=== PATIENT | male | born 1935 | race Caucasian/White ===

== ENCOUNTER 2018-01-04 14:38 | Inpatient (IN) | payer OTHER ==
[~2018-01-04] VITALS: Ht 172.7 cm; Wt 64.0 kg
[~2018-01-04 14:38] MED LIST: AMLODIPINE BESYL5 M1 PO; FUROSEMIDE20 M1 PO; OMEPRAZOLE20 M2 PO; PRAVACHOL40 M1 PO; TOPROL XL25 M1 PO
--- NOTE | 2018-01-04 15:09 | ED MVC/FALL/TRAUMA COMPLAINT ---
History of Present Illness General Chief Complaint: Shoulder Injury Stated Complaint: L SHOULDER PAIN Source: patient Exam Limitations: no limitations Allergies Coded Allergies: No Known Allergies (06/30/17) Reconcile Medications Amlodipine Besylate 5 MG TABLET 1 TAB PO DAILY HTN (Reported) Furosemide 20 MG TABLET 1 TAB PO DAILY HTN (Reported) Metoprolol Succ XL (Toprol XL) 25 MG TAB 1 TAB PO DAILY HTN (Reported) Omeprazole 20 MG CAPSULE.DR 1 CAP PO DAILY GERD (Reported) Pravastatin Sodium (Pravachol) 40 MG TABLET 1 TAB PO DAILY CHOLESTEROL ( Reported) Triage Note: LOST FOOTING AND FELL DOWN 12 STEPS INJURING LEFT SHOULDER. PT HAS LITTLE RECOLLECT OF INCIDENT AND IS UNSURE OF LOC. PT DENIES BLOOD THINNERS. PT GIVEN MOTRIN IN TRIAGE Triage Nurses Notes Reviewed? yes Onset: Abrupt Duration: constant Timing: single episode today Severity: moderate Severity Numbers: 7 Injuries/Fall Location: neck, upper extremity Method of Injury: fall Loss of Consciousness: unsure HPI: Patient is a 82-year-old male with past medical history of hypertension and hyperlipidemia who lives in a private residence by himself WHO states that today he was in his normal state of health patient was ambulating up steps from his garage to his residence carrying groceries one step at a time where he states he was at the top of his stairs approximately 12 OF THEM, and then next thing patient remembers is being on the floor in his garage. Patient states that he had woken up to left shoulder pain and took about 5 minutes for patient to get up on his own where he then ambulated up the stairs and called his daughter with a presents to emergency room. Patient denies any preceding absolute lightheaded or dizziness sensation denies any headache complains of mild general his neck pain and left wrist pain along with the severe left shoulder pain and patient is unable to move the left arm. Patient denies any lower extremity pain abdominal pain and low back pain (Ortiz SINGLETON,Fer) Vital Signs & Intake/Output Vital Signs & Intake/Output Vital Signs Date Time Temp Pulse Resp B/P B/P Pulse O2 O2 Flow FiO2 Mean Ox Delivery Rate 01/04 1659 77 20 182/79 98 Room Air 01/04 1620 97 Room Air 01/04 1458 97.1 68 20 159/66 97 Room Air (Massiel NIELSEN,Fred Gutierrez) Past History Travel History Traveled to [place] past 21 day No Medical History Any Pertinent Medical History? see below for history Cardiovascular: hypertension, hyperlipidemia Pneumonia Vaccine: 10/12/04 Surgical History Surgical History: non-contributory Psychosocial History What is your primary language Sami Tobacco Use: Quit >30 days ago ETOH Use: occasional use Illicit Drug Use: denies illicit drug use Family History Hx Contributory? No (Fer Burnett) Review of Systems Review of Systems Constitutional: Reports: no symptoms. Eyes: Reports: no symptoms. Ears, Nose, Throat, Mouth: Reports: no symptoms. Respiratory: Reports: no symptoms. Cardiovascular: Reports: see HPI. Gastrointestinal/Abdominal: Reports: no symptoms. Genitourinary: Reports: no symptoms. Musculoskeletal: Reports: see HPI. Skin: Reports: no symptoms. Neurological/Psychological: Reports: no symptoms. All Other Systems: Reviewed and Negative (Ortiz SINGLETON,Fer) Physical Exam Physical Exam General Appearance: no apparent distress, alert, comfortable Head: atraumatic Eyes: Bilateral: normal appearance, PERRL, EOMI. Ears, Nose, Throat, Mouth: hearing grossly normal Neck: paraspinous muscle tender, spinous processes tender Respiratory: no respiratory distress Cardiovascular: regular rate/rhythm Peripheral Pulses: 2+ radial (R) Gastrointestinal: normal bowel sounds, soft, non-tender Back: no vertebral tenderness Skin: intact Comments: Left shoulder generalized point tenderness noted decreased active range of motion noted Left elbow normal instruction nontender full active range of motion Left wrist and hand mild generalized point tenderness noted Left radial pulse intact +2 Right upper extremity and bilateral lower extremity nontender full active range of motion Core Measures ACS in differential dx? Yes CVA/TIA Diagnosis No Sepsis Present: No Sepsis Focused Exam Completed? No (Fer Burnett) Progress Differential Diagnosis: aoritic dissection, abd injury, C/T/L spine injury, ext injury, ICH, pelvis injury, pnemothorax, spinal cord injury Diagnostic Imaging: Viewed by Me: CT Scan. Radiology Impression: acute abnormality Initial ED EKG: normal QRS complex, normal sinus rhythm, 76 BPM,NSR Comments: PATIENT: SHERRY FUENTES PRESENT AGE: 82 PATIENT ACCOUNT NO: [id number] : 37 LOCATION: [facility] ORDERING PHYSICIAN: Fer SINGLETON SERVICE DATE: 01/04/18 EXAM TYPE: US - [id number] DOPPLER EXAMINATION: US DUPLEX CAROTID AND VERTEBRAL CLINICAL INFORMATION: Syncope. COMPARISON: None TECHNIQUE: Real-time ultrasound and Doppler techniques (integrating B-mode 2D vascular images, Doppler spectral analysis and color flow Doppler imaging) were utilized to interrogate the extracranial carotid and vertebral arteries bilaterally. The degree of stenosis determined by criteria similar to NASCET. FINDINGS: Peak systolic velocity within the right common carotid artery is 107 cm/s. Peak systolic velocity within the right proximal internal carotid artery is 181 cm/s. End-diastolic velocity of the proximal right internal carotid artery is 25 cm/s. There is atherosclerotic disease about the carotid bifurcation. Antegrade flow within the right vertebral artery. Peak systolic velocity within the left common carotid artery is 160 cm/s. Peak systolic velocity within the left proximal internal carotid artery is 51.6 cm/s. End-diastolic velocity of the proximal left internal carotid artery is 7 cm/s. There is atherosclerotic disease about the carotid bifurcation. Antegrade flow within the left vertebral artery. IMPRESSION: 1. Approximately 50-79% stenosis at the proximal right internal carotid artery. 2. Approximately 0-49% stenosis at the proximal left internal carotid artery. DICTATED BY: Raul Newsome MD DATE/TIME DICTATED:01/04/181699 PATIENT: SHERRY FUENTES PRESENT AGE: 82 PATIENT ACCOUNT NO: [id number] : 37 LOCATION: [facility] ORDERING PHYSICIAN: Fer SINGLETON SERVICE DATE: 01/04/18 EXAM TYPE: CAT - CT ABD & PELVIS W/O IV CONTRAS; CT CHEST WO IV CONTRAST EXAMINATION: CT CHEST WITHOUT INTRAVENOUS CONTRAST CT ABDOMEN AND PELVIS WITHOUT INTRAVENOUS CONTRAST CLINICAL INFORMATION: Fall. Syncope, 12 steps. COMPARISON: None DLP: 389 mGy-cm TECHNIQUE: Axial images of the chest, abdomen, and pelvis were obtained without intravenous contrast. Reformatted images were reviewed. FINDINGS: Thorax: No pneumothorax, evidence of hemothorax, or consolidation suspicious for contusion. Mild dependent consolidation in the right lower lobe. There are a few scattered subcentimeter pulmonary nodules. On axial image 303/1040, there is a 0.6 cm left upper lobe nodule with an eccentric coarse internal calcification. Other smaller micronodules are demonstrated. The trachea and central airways are patent. No mediastinal adenopathy. Multifocal coronary artery calcification. Abdomen/Pelvis: No pneumoperitoneum or evidence of hemoperitoneum. Bilateral mild perinephric stranding is nonspecific and of doubtful clinical significance. There is layering hyperdense sludge versus tiny gallstones within the gallbladder lumen. No evidence of hepatic or splenic laceration. No adrenal or pancreatic abnormality. Exophytic small cyst off the upper pole the left kidney. Additional 1 cm lesion off the lower pole the left kidney measuring 22 Hounsfield units which is nonspecific. Bowel gas pattern is nonobstructive. No evidence of acute bowel injury or inflammation. There are a few scattered colonic diverticula. The appendix is absent. Scattered atherosclerotic calcification. No adenopathy. No free pelvic fluid. Coarse prostate calcifications. Bladder is unremarkable. Musculoskeletal: No acute osseous abnormalities. Chronic L5 pars defects. Multilevel degenerative changes of the spine. Partially visualized cervical fusion hardware. Decreased bone mineral density. Subacute to chronic right anterolateral 8th and 9th rib fractures. Hypertrophic changes at the sacroiliac joints. IMPRESSION: 1. No evidence of traumatic intrathoracic, intra-abdominal, or intrapelvic pathology. 2. Diffuse atherosclerotic disease including coronary artery calcification. 3. Scattered subcentimeter pulmonary nodules measuring up to 0.6 cm in the left upper lobe. According to the UPDATED 2017 Fleischner Society recommendations, the advised followup imaging for multiple solid nodules, the largest measuring 6 mm or greater, is: LOW RISK PATIENT: CT at 3-6 months, then consider CT at 18-24 months. HIGH RISK PATIENT: CT at 3-6 months, then at 18-24 months. 4. Symmetric mild perinephric stranding bilaterally is of doubtful clinical significance. 5. A nonspecific 1 cm hypodense lesion measuring just greater than simple fluid density along the lower pole of the left kidney. This could represent a cyst. Consider correlation with sonography to ensure cystic nature. 6. Other nonacute findings as described above. DICTATED BY: Raul Newsome MD DATE/TIME DICTATED:01/04/181616 HAZMAT CDL DRIVER:VIJAY PATIENT: SHERRY FUENTES PRESENT AGE: 82 PATIENT ACCOUNT NO: [id number] : 37 LOCATION: [facility] ORDERING PHYSICIAN: Fer SINGLETON SERVICE DATE: 01/04/18-1228 EXAM TYPE: RAD - XRY-HUMERUS, LEFT EXAMINATION: XR HUMERUS, LEFT CLINICAL INFORMATION: Left arm pain after fall. COMPARISON: Left shoulder radiography 01/04/2018. TECHNIQUE: AP and lateral views of the left humerus. FINDINGS: Decreased bone mineral density. No fracture or dislocation. The shoulder and elbow joints appear congruent. IMPRESSION: No acute osseous abnormalities. DICTATED BY: Raul Newsome MD DATE/TIME DICTATED:01/04/181632 PATIENT: SHERRY FUENTES PRESENT AGE: 82 PATIENT ACCOUNT NO: [id number] : 37 LOCATION: [facility] ORDERING PHYSICIAN: Fer SINGLETON SERVICE DATE: 01/04/18 EXAM TYPE: CAT - CT CERV SPINE WO IV CONTRAST; CT HEAD WO IV CONTRAST EXAMINATION: CT HEAD WITHOUT CONTRAST CT CERVICAL SPINE WITHOUT CONTRAST CLINICAL INFORMATION: Fall. Syncope. COMPARISON: Cervical spine 03/25/2007, 08/30/2015. TECHNIQUE: Imaging was performed from the skull base to vertex without intravenous administration of contrast. In addition, helical noncontrast CT imaging was acquired through the cervical spine and source images were reviewed along with axial reconstructions and sagittal and coronal MPRs. DLP: 866.69 mGy-cm. FINDINGS: HEAD: There is a small subarachnoid hemorrhage at the vertex of the right frontal lobe, axial image 43 (2). There is no subdural collection. There is no mass effect. There is atrophy with prominence of the ventricles and sulci with hypodensity of the periventricular white matter and chronic small vessel ischemic disease. There is vascular calcification of the internal carotid arteries bilaterally. There is no skull fracture. There is opacification of the right frontal sinus with occlusion of the right frontal sinus ostia and mucosal thickening extending into the ethmoid sinus. There is a small area of mucosal thickening in the left ethmoid posteriorly. The sphenoid sinuses are normally aerated. The middle ear cavities and mastoid air cells are normally aerated. CERVICAL SPINE: There is a slightly displaced transverse fracture through the posterior spinous process of C7. The alignment of the vertebrae is normal. The vertebrae have normal height. Patient has fusion with anterior plate and screw and disc spacers at C5-C7. There has been resection of the posterior spinous process of C3-C6. There is large anterior nonbridging osteophytes at C3-C4 and C4-C5 with disc height narrowing. There is also large nonbridging osteophytes with disc height narrowing at C6-C7. There is multilevel facet joint arthrosis bilateral. No pre or paravertebral soft tissue abnormality is identified. Limited assessment of the lung apices is unremarkable. IMPRESSION: 1. Subarachnoid hemorrhage in the right frontal lobe vertex. 2. There is an acute oblique fracture through the posterior C7 spinous process which is slightly displaced. 3. Multilevel degenerative spondylosis of cervical spine. Status post fusion of C5 C7. Status post resection of posterior spinous process of C3-C6. This critical result was discussed with Dr. Alcantar on 01/04/2018, 4:25 p.m. and it was ascertained that the content and urgency of the report was understood at the time of direct communication. DICTATED BY: John Ruiz MD DATE/TIME DICTATED:01/04/181614 HAZMAT CDL DRIVER:VIJAY DATE/TIME TRANSCRIBED:01/04/181614 (Fer Burnett) Plan of Care: Orders Procedure Date/time Status CBC WITHOUT DIFFERENTIAL 01/04 2100 Active Pathway - chart 01/04 1837 Active House Staff 01/04 1837 Active Patient Data 01/04 1824 Active Durable Medical Equipment 01/04 1759 Active CREATINE PHOSPHOKINASE 01/04 1538 Complete Telemetry/Sludge Filtration Attendant 01/04 1523 Active TROPONIN LEVEL 01/04 1523 Complete MAGNESIUM 01/04 1523 Complete COMPREHENSIVE METABOLIC PANEL 01/04 1523 Complete CBC WITHOUT DIFFERENTIAL 01/04 1523 Complete EKG 01/04 1523 Active VTE Mechanical Prophylaxis 01/04 UNK Active Vital Signs 01/04 UNK Active Intake & Output 01/04 UNK Active Current Medications Sig/Keven Start time Last Medication Dose Stop Time Status Admin Acetaminophen 1,000 MG ONCE ONE 01/04 1900 AC 01/04 (Ofirmev) 01/04 191 1904 N/A 1 UNIT (No Carrier) Magnesium Sulfate 1 GM Q2H 01/04 190 UNVr 01/04 (Mag Sulfate in D5) 01/04 2259 1856 Dextrose/Water 100 ML (D5W) Laboratory Tests 01/04/18 1538: Anion Gap 15, Estimated GFR 29 L, BUN/Creatinine Ratio 7.7, Glucose 98, Calcium 9.9, Magnesium 1.1 L, Total Bilirubin 0.8, AST 29, ALT 29, Alkaline Phosphatase 96, Creatine Kinase 183 H, Troponin I < 0.01, Total Protein 7.5, Albumin 4.1, Globulin 3.4, Albumin/Globulin Ratio 1.2, CBC w Diff NO MAN DIFF REQ, RBC 3.53 L, MCV 96.8 H, MCH 33.0 H, MCHC 34.1, RDW 13.4, MPV 6.5 L, Gran % 81.3 H, Lymphocytes % 9.5 L, Monocytes % 8.7, Eosinophils % 0.2, Basophils % 0.3, Absolute Granulocytes 6.5, Absolute Lymphocytes 0.8 L, Absolute Monocytes 0.7 H, Absolute Eosinophils 0, Absolute Basophils 0 01/04/18 1531: Creatine Kinase Cancelled Patient on initial examination was complaining primarily of left lateral shoulder and upper arm pain and complaining of mild generalized neck pain, patient was neurovascularly intact of the extremities and cranial nerves were intact however there was clinical findings of a C7 spinous process fracture in which patient was immediately given a hard collar and there was consideration of a subarachnoid hemorrhage in which Dr. Liu was aware of critical findings which she stated that there was no emergent intervention warranted for patient's findings of the spine in the head, she advised patient to be placed in a soft collar which I replaced the hard collar to a soft collar patient also has findings of hypomagnesemia and hyponatremia and acute on chronic renal failure and syncope which patient will be admitted to the ICU, I PLACED A WRIST SPLINT DUE TO CONCERNS OF XRAY FINDINGS FOR FRACTURES PRE AND POST NEUROVASCULAR WAS INTACT. Discussed disposition plan with daughter and patient who agree and have no questions (Fer Burnett) (Massiel NIELSEN,Fred Gutierrez) Departure Departure Disposition: STILL A PATIENT Condition: Guarded Clinical Impression Primary Impression: Syncope Secondary Impressions: JASPREET (acute kidney injury), Carotid stenosis, Fall, Hypomagnesemia, Hyponatremia, Left wrist fracture, Spinous process fracture, Subarachnoid bleed Referrals: Bernice Campos (PCP/Family) Departure Forms: Customer Survey General Discharge Information Admission Note Spoke With: Danis Smith MD Documentation of Exam: Documentation of any treatments & extenuating circumstances including Concerns Regarding Discharge (functional status, medication knowledge or non-compliance, living conditions, etc.) that warrant an admission rather than observation: [PT REQUIRES ICU FOR SYNCOPE, SAH, electrolyte abnormalities, carotid stenosis C7 fracture patient requires repeat labs, frequent vital sign checks repeat CT imaging neurosurgery consultation cardiology consultation orthopedic consultation] (Fer Burnett) PA/OFFICE CLIN ASST Co-Sign Statement Statement: ED Attending supervision documentation- [X] I saw and evaluated the patient. I have also reviewed all the pertinent lab results and diagnostic results. I agree with the findings and the plan of care as documented in the PA's/OFFICE CLIN ASST's documentation. Patient presents for evaluation of injury sustained status post fall down approximately 12 stairs prior to arrival. Physical examination reveals severe pain with range of motion of left shoulder. Neurologic examination reveals no cranial nerve deficits. 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 [] I have reviewed the ED Record and agree with the PA's/OFFICE CLIN ASST's documentation. [] Additions or exceptions (if any) to the PAs/OFFICE CLIN ASST's note and plan are summarized below: [] (Massiel NIELSEN,Fred Gutierrez) Critical Care Note Critical Care Note Critical Care Time: 75-104 min (Ortiz SINGLETON,Fer)
--- NOTE | 2018-01-04 15:47 | RADIOLOGY REPORT ---
EXAMINATION: XR SHOULDER, LEFT CLINICAL INFORMATION: Left shoulder pain. COMPARISON: None TECHNIQUE: Three views of the left shoulder. FINDINGS: The bones and soft tissues are normal. No fracture. Glenohumeral and acromioclavicular alignment is anatomic with normal joint space. No abnormal soft tissue calcifications. IMPRESSION: Normal left shoulder.
[2018-01-04 15:56] LABS: ABSOLUTE BASOPHIL COUNT 0 /CUMM (0.0-0.2); ABSOLUTE EOSINOPHIL COUNT 0 /CUMM (0.0-0.7); ABSOLUTE GRANULOCYTE CT 6.5 /CUMM (1.4-6.5); ABSOLUTE LYMPH COUNT 0.8 /CUMM (1.2-3.4); ABSOLUTE MONOCYTE COUNT 0.7 /CUMM (0.10-0.60); BASOPHIL % 0.3 % (0.0-2.0); EOSINOPHIL % 0.2 % (0-5); GRANULOCYTE % 81.3 % (42.2-75.2); HEMATOCRIT 34.2 % (42-52); MEAN CORPUSCULAR HGB CONC 34.1 G/DL (33.0-37.0); MEAN CORPUSCULAR VOLUME 96.8 FL (80.0-94.0); MEAN PLATELET VOLUME 6.5 FL (7.4-10.4); PLATELET COUNT 292 /CUMM (130-400); RBC DISTRIBUTION WIDTH 13.4 % (11.5-14.5); RED BLOOD CELL CT 3.53 /CUMM (4.70-6.10)
--- NOTE | 2018-01-04 16:03 | RADIOLOGY REPORT ---
EXAMINATION: XR WRIST, LEFT CLINICAL INFORMATION: Left wrist pain. COMPARISON: None TECHNIQUE: Three views of the left wrist. FINDINGS: There is osteopenia. At the mid waist of the navicular bone there is a subtle transverse sclerotic line. At the mid waist of navicular bone at the radial side of the bone there is a small contour groove of the cortex though its difficult to exclude a small cortical step-off. A subtle fracture of the navicular bone at the mid waist is therefore not excluded. There is joint narrowing of the first metacarpal carpal joint with bone spurring at the joint margin. IMPRESSION: A subtle mid waist fracture of navicular bone cannot be excluded. Follow-up with CT or MRI would be helpful. This critical result was discussed with Dr. Fer Alcantar on 01/04/2018, 3:58 PM and it was ascertained that the content and urgency of the report was understood at the time of direct communication.
--- NOTE | 2018-01-04 16:37 | RADIOLOGY REPORT ---
EXAMINATION: XR HUMERUS, LEFT CLINICAL INFORMATION: Left arm pain after fall. COMPARISON: Left shoulder radiography 01/04/2018. TECHNIQUE: AP and lateral views of the left humerus. FINDINGS: Decreased bone mineral density. No fracture or dislocation. The shoulder and elbow joints appear congruent. IMPRESSION: No acute osseous abnormalities.
--- NOTE | 2018-01-04 16:38 | CT SCAN REPORT ---
EXAMINATION: CT CHEST WITHOUT INTRAVENOUS CONTRAST CT ABDOMEN AND PELVIS WITHOUT INTRAVENOUS CONTRAST CLINICAL INFORMATION: Fall. Syncope, 12 steps. COMPARISON: None DLP: 389 mGy-cm TECHNIQUE: Axial images of the chest, abdomen, and pelvis were obtained without intravenous contrast. Reformatted images were reviewed. FINDINGS: Thorax: No pneumothorax, evidence of hemothorax, or consolidation suspicious for contusion. Mild dependent consolidation in the right lower lobe. There are a few scattered subcentimeter pulmonary nodules. On axial image 303/1040, there is a 0.6 cm left upper lobe nodule with an eccentric coarse internal calcification. Other smaller micronodules are demonstrated. The trachea and central airways are patent. No mediastinal adenopathy. Multifocal coronary artery calcification. Abdomen/Pelvis: No pneumoperitoneum or evidence of hemoperitoneum. Bilateral mild perinephric stranding is nonspecific and of doubtful clinical significance. There is layering hyperdense sludge versus tiny gallstones within the gallbladder lumen. No evidence of hepatic or splenic laceration. No adrenal or pancreatic abnormality. Exophytic small cyst off the upper pole the left kidney. Additional 1 cm lesion off the lower pole the left kidney measuring 22 Hounsfield units which is nonspecific. Bowel gas pattern is nonobstructive. No evidence of acute bowel injury or inflammation. There are a few scattered colonic diverticula. The appendix is absent. Scattered atherosclerotic calcification. No adenopathy. No free pelvic fluid. Coarse prostate calcifications. Bladder is unremarkable. Musculoskeletal: No acute osseous abnormalities. Chronic L5 pars defects. Multilevel degenerative changes of the spine. Partially visualized cervical fusion hardware. Decreased bone mineral density. Subacute to chronic right anterolateral 8th and 9th rib fractures. Hypertrophic changes at the sacroiliac joints. IMPRESSION: 1. No evidence of traumatic intrathoracic, intra-abdominal, or intrapelvic pathology. 2. Diffuse atherosclerotic disease including coronary artery calcification. 3. Scattered subcentimeter pulmonary nodules measuring up to 0.6 cm in the left upper lobe. According to the UPDATED 2017 Fleischner Society recommendations, the advised followup imaging for multiple solid nodules, the largest measuring 6 mm or greater, is: LOW RISK PATIENT: CT at 3-6 months, then consider CT at 18-24 months. HIGH RISK PATIENT: CT at 3-6 months, then at 18-24 months. 4. Symmetric mild perinephric stranding bilaterally is of doubtful clinical significance. 5. A nonspecific 1 cm hypodense lesion measuring just greater than simple fluid density along the lower pole of the left kidney. This could represent a cyst. Consider correlation with sonography to ensure cystic nature. 6. Other nonacute findings as described above.
--- NOTE | 2018-01-04 16:49 | CT SCAN REPORT ---
EXAMINATION: CT HEAD WITHOUT CONTRAST CT CERVICAL SPINE WITHOUT CONTRAST CLINICAL INFORMATION: Fall. Syncope. COMPARISON: Cervical spine 03/25/2007, 08/30/2015. TECHNIQUE: Imaging was performed from the skull base to vertex without intravenous administration of contrast. In addition, helical noncontrast CT imaging was acquired through the cervical spine and source images were reviewed along with axial reconstructions and sagittal and coronal MPRs. DLP: 866.69 mGy-cm. FINDINGS: HEAD: There is a small subarachnoid hemorrhage at the vertex of the right frontal lobe, axial image 43 (2). There is no subdural collection. There is no mass effect. There is atrophy with prominence of the ventricles and sulci with hypodensity of the periventricular white matter and chronic small vessel ischemic disease. There is vascular calcification of the internal carotid arteries bilaterally. There is no skull fracture. There is opacification of the right frontal sinus with occlusion of the right frontal sinus ostia and mucosal thickening extending into the ethmoid sinus. There is a small area of mucosal thickening in the left ethmoid posteriorly. The sphenoid sinuses are normally aerated. The middle ear cavities and mastoid air cells are normally aerated. CERVICAL SPINE: There is a slightly displaced transverse fracture through the posterior spinous process of C7. The alignment of the vertebrae is normal. The vertebrae have normal height. Patient has fusion with anterior plate and screw and disc spacers at C5-C7. There has been resection of the posterior spinous process of C3-C6. There is large anterior nonbridging osteophytes at C3-C4 and C4-C5 with disc height narrowing. There is also large nonbridging osteophytes with disc height narrowing at C6-C7. There is multilevel facet joint arthrosis bilateral. No pre or paravertebral soft tissue abnormality is identified. Limited assessment of the lung apices is unremarkable. IMPRESSION: 1. Subarachnoid hemorrhage in the right frontal lobe vertex. 2. There is an acute oblique fracture through the posterior C7 spinous process which is slightly displaced. 3. Multilevel degenerative spondylosis of cervical spine. Status post fusion of C5 C7. Status post resection of posterior spinous process of C3-C6. This critical result was discussed with Dr. Alcantar on 01/04/2018, 4:25 p.m. and it was ascertained that the content and urgency of the report was understood at the time of direct communication.
--- NOTE | 2018-01-04 17:06 | ULTRASOUND REPORT ---
EXAMINATION: US DUPLEX CAROTID AND VERTEBRAL CLINICAL INFORMATION: Syncope. COMPARISON: None TECHNIQUE: Real-time ultrasound and Doppler techniques (integrating B-mode 2D vascular images, Doppler spectral analysis and color flow Doppler imaging) were utilized to interrogate the extracranial carotid and vertebral arteries bilaterally. The degree of stenosis determined by criteria similar to NASCET. FINDINGS: Peak systolic velocity within the right common carotid artery is 107 cm/s. Peak systolic velocity within the right proximal internal carotid artery is 181 cm/s. End-diastolic velocity of the proximal right internal carotid artery is 25 cm/s. There is atherosclerotic disease about the carotid bifurcation. Antegrade flow within the right vertebral artery. Peak systolic velocity within the left common carotid artery is 160 cm/s. Peak systolic velocity within the left proximal internal carotid artery is 51.6 cm/s. End-diastolic velocity of the proximal left internal carotid artery is 7 cm/s. There is atherosclerotic disease about the carotid bifurcation. Antegrade flow within the left vertebral artery. IMPRESSION: 1. Approximately 50-79% stenosis at the proximal right internal carotid artery. 2. Approximately 0-49% stenosis at the proximal left internal carotid artery.
--- NOTE | 2018-01-04 17:30 | Cons- Neurosurgical ---
Teri Osorio 01/04/18 1720: General Information and HPI Consulting Request Date of Consult: 01/04/18 Requested By: emergency room Reason for Consult: tiny subarachnoid bleed, minimally displaced C7 spinous process fx, s/p fall History of Present Illness: 82yoM sp unwitnessed fall at home after grocery shopping. His main complaint is left shoulder pain, no other complaints. He hit his head, though denies headache, dizziness, chest pain or sob. Please see Dr. Kessler's attending note. Allergies/Medications Allergies: Coded Allergies: No Known Allergies (06/30/17) Home Med List: Amlodipine Besylate 5 MG TABLET 1 TAB PO DAILY HTN (Reported) Furosemide 20 MG TABLET 1 TAB PO DAILY HTN (Reported) Metoprolol Succ XL (Toprol XL) 25 MG TAB 1 TAB PO DAILY HTN (Reported) Omeprazole 20 MG CAPSULE. 1 CAP PO DAILY GERD (Reported) Pravastatin Sodium (Pravachol) 40 MG TABLET 1 TAB PO DAILY CHOLESTEROL ( Reported) Past History Medical History Cardiovascular: hypertension, hyperlipidemia Surgical History Pertinent Surgical History: spinal fusion (ant/post cervical fusion) Psychosocial History ETOH Use: occasional use Illicit Drug Use: denies illicit drug use Exam & Diagnostic Data Vital Signs and I&O Vital Signs Date Time Temp Pulse Resp B/P B/P Pulse O2 O2 Flow FiO2 Mean Ox Delivery Rate 01/04 1659 77 20 182/79 98 Room Air 01/04 1620 97 Room Air 01/04 1458 97.1 68 20 159/66 97 Room Air Intake & Output 01/04 1600 01/04 0800 01/04 0000 01/03 1600 01/03 0800 01/03 0000 Intake Total Output Total Balance Patient 130 lb Weight Weight Reported by Patient Measurement Method Physical Exam: GEN- NAD, soft cervical collar in place CARD- RRR PULM-no audible wheeze NEURO- moves all 4 extremities on command, gross strength equal bl, gross motor/ sensate intact EXT- calves soft nt bl Imaging Results: SERVICE DATE: 01/04/18-1523 EXAM TYPE: CAT - CT CERV SPINE WO IV CONTRAST; CT HEAD WO IV CONTRAST EXAMINATION: CT HEAD WITHOUT CONTRAST CT CERVICAL SPINE WITHOUT CONTRAST CLINICAL INFORMATION: Fall. Syncope. COMPARISON: Cervical spine 03/25/2007, 08/30/2015. TECHNIQUE: Imaging was performed from the skull base to vertex without intravenous administration of contrast. In addition, helical noncontrast CT imaging was acquired through the cervical spine and source images were reviewed along with axial reconstructions and sagittal and coronal MPRs. DLP: 866.69 mGy-cm. FINDINGS: HEAD: There is a small subarachnoid hemorrhage at the vertex of the right frontal lobe, axial image 43 (2). There is no subdural collection. There is no mass effect. There is atrophy with prominence of the ventricles and sulci with hypodensity of the periventricular white matter and chronic small vessel ischemic disease. There is vascular calcification of the internal carotid arteries bilaterally. There is no skull fracture. There is opacification of the right frontal sinus with occlusion of the right frontal sinus ostia and mucosal thickening extending into the ethmoid sinus. There is a small area of mucosal thickening in the left ethmoid posteriorly. The sphenoid sinuses are normally aerated. The middle ear cavities and mastoid air cells are normally aerated. CERVICAL SPINE: There is a slightly displaced transverse fracture through the posterior spinous process of C7. The alignment of the vertebrae is normal. The vertebrae have normal height. Patient has fusion with anterior plate and screw and disc spacers at C5-C7. There has been resection of the posterior spinous process of C3-C6. There is large anterior nonbridging osteophytes at C3-C4 and C4-C5 with disc height narrowing. There is also large nonbridging osteophytes with disc height narrowing at C6-C7. There is multilevel facet joint arthrosis bilateral. No pre or paravertebral soft tissue abnormality is identified. Limited assessment of the lung apices is unremarkable. IMPRESSION: 1. Subarachnoid hemorrhage in the right frontal lobe vertex. 2. There is an acute oblique fracture through the posterior C7 spinous process which is slightly displaced. 3. Multilevel degenerative spondylosis of cervical spine. Status post fusion of C5 C7. Status post resection of posterior spinous process of C3-C6. Assessment/Plan Assessment/Plan A- 82yoM sp fall with minimally displaced C7 spinous process fracture and minor subarachnoid hemorrhage, stable, with no neurosurgical intervention needed. P- Discussed with Dr. Kessler. Please see her attending note. No neurosurgical intervention needed. Soft cervical collar to manage neck pain. Repeat head CT if abrupt neurological changes develop. Admit to medicine if admission warranted. Thank you for this consult. Problem List: 1. Subarachnoid bleed 2. Spinous process fracture 3. Fall Consult Acknowledgment - Thank you for your consult request. Keisha Kessler MD 01/05/18 1022: Assessment/Plan Consult Acknowledgment - Thank you for your consult request.
--- NOTE | 2018-01-04 18:34 | History & Physical ---
Leydi NIELSEN,Yohannes 01/04/18 1833: General Information and HPI MD Statement: I have seen and personally examined SHERRY FUENTES and documented this H&P. The patient is a 82 year old M who presented with a patient stated chief complaint of [FALL, loss of consciousness]. Source of Information: patient, family Exam Limitations: no limitations History of Present Illness: 82-year-old male with past medical history of hypertension, hyperlipidemia, is here after sustaining a fall and loss of consciousness earlier today. According to patient, he was in his usual state of health until this morning around 9:30 AM, when he sustained a fall from his stairs, about 12 steps, and found himself at the bottom of the stairs, not remembering the events during or immediately after the fall. He complained of left shoulder pain after the incident. He does not remember having any chest pain, palpitations, shortness of breath, dizziness, leg swelling, bruise, wound, weakness/numbness/tingling of any part of the body, vision changes, hearing changes, incontinence, confusion before or right after the incident. Of note, he admits to having dizziness usually in the morning around breakfast time, not when he stands up from sitting position, which goes away within a minute. Also, he endorses left-sided hearing difficulty, which has been a chronic problem. She drinks 4 beers daily, and the last drink was last night. Quit smoking 20 yrs ago. Denies illicit drugs or OTC meds other than Vitamins. 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 He does not mention any fever, chills, sick contacts, recent travels, leg swelling in the recent past. Allergies/Medications Allergies: Coded Allergies: No Known Allergies (06/30/17) Home Med list Amlodipine Besylate 5 MG TABLET 1 TAB PO DAILY HTN (Reported) Furosemide 20 MG TABLET 1 TAB PO DAILY HTN (Reported) Metoprolol Succ XL (Toprol XL) 25 MG TAB 1 TAB PO DAILY HTN (Reported) Omeprazole 20 MG CAPSULE. 1 CAP PO DAILY GERD (Reported) Pravastatin Sodium (Pravachol) 40 MG TABLET 1 TAB PO DAILY CHOLESTEROL ( Reported) Compliance With Home Meds: GOOD Past History Travel History Traveled to [place] past 21 day No Medical History Neurological: NONE EENT: NONE Cardiovascular: hypertension, hyperlipidemia Respiratory: NONE Gastrointestinal: NONE Hepatic: NONE Renal: NONE Psychiatric: NONE Endocrine: NONE Blood Disorders: NONE Cancer(s): NONE Pneumonia Vaccine: 10/12/04 Surgical History Surgical History: hernia repair-inguinal (lap, b/l, 07/03/2017, dr pardo), spinal fusion (cervical) Past Family/Social History Psychosocial History Where do you live? Home Services at Home: None Primary Language: Cypriot Smoking Status: Former Smoker (1.5 pack/day, quit 20 yrs ago) ETOH Use: daily 4 beers, last drink last night Illicit Drug Use: denies illicit drug use Living Will? yes Power of Library Attendant/HCP? daughters (both) per patient Functional Ability ADLs Independent: dressing, eating, toileting, bathing. Ambulation: independent IADLs Independent: shopping, housework, finances, food prep, telephone, transportation , medication admin. 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 EENTM: Reports: no symptoms. Cardiovascular: Reports: no symptoms. Respiratory: Reports: no symptoms. GI: Reports: no symptoms. Genitourinary: Reports: no symptoms. Musculoskeletal: Reports: see HPI. Skin: Reports: no symptoms. Neurological/Psychological: Reports: see HPI (LOC). Hematologic/Endocrine: Reports: no symptoms. All Other Systems: Reviewed and Negative Exam & Diagnostic Data Last 24 Hrs of Vital Signs/I&O Vital Signs Date Time Temp Pulse Resp B/P B/P Pulse O2 O2 Flow FiO2 Mean Ox Delivery Rate 01/04 1659 77 20 182/79 98 Room Air 01/04 1620 97 Room Air 01/04 1458 97.1 68 20 159/66 97 Room Air Intake & Output 01/04 1600 01/04 0800 01/04 0000 Intake Total Output Total Balance Patient 58.967 kg Weight Weight Reported by Patient Measurement Method Physical Exam General Appearance Alert, Oriented X3, Cooperative, No Acute Distress, with cervical collar on Skin No Rashes, No Breakdown, No Significant Lesion Skin Temp/Moisture Exam: Warm/Dry Sepsis Skin Exam (color): Normal for Ethnicity HEENT Atraumatic, PERRLA, EOMI, dry mucosa Neck CERVICAL COLLAR ON, not checking for ROM Cardiovascular Regular Rate, Normal S1, Normal S2, No Murmurs, Gallops, Rubs Lungs Clear to Auscultation, Normal Air Movement Abdomen Normal Bowel Sounds, Soft, No Tenderness Neurological Normal Speech, Strength at 5/5 X4 Ext, Normal Tone, Sensation Intact, Cranial Nerves 3-12 NL, Reflexes 2+, NIH SS zero Extremities No Clubbing, No Cyanosis, No Edema, Normal Pulses, left shoulder pain, limited ROM due to pain, DNVS intact Vascular Normal Pulses, Pulses Symmetrical Sepsis Peripheral Pulse Location: Radial (normal b/l) Sepsis Peripheral Pulse Exam: Normal Sepsis Cap Refill Exam: <2 Sec Last 24 Hrs of Labs/Enrrique: Laboratory Tests 01/04/18 1538: Anion Gap 15, Estimated GFR 29 L, BUN/Creatinine Ratio 7.7, Glucose 98, Calcium 9.9, Magnesium 1.1 L, Total Bilirubin 0.8, AST 29, ALT 29, Alkaline Phosphatase 96, Creatine Kinase 183 H, Troponin I < 0.01, Total Protein 7.5, Albumin 4.1, Globulin 3.4, Albumin/Globulin Ratio 1.2, CBC w Diff NO MAN DIFF REQ, RBC 3.53 L, MCV 96.8 H, MCH 33.0 H, MCHC 34.1, RDW 13.4, MPV 6.5 L, Gran % 81.3 H, Lymphocytes % 9.5 L, Monocytes % 8.7, Eosinophils % 0.2, Basophils % 0.3, Absolute Granulocytes 6.5, Absolute Lymphocytes 0.8 L, Absolute Monocytes 0.7 H, Absolute Eosinophils 0, Absolute Basophils 0 01/04/18 1531: Creatine Kinase Cancelled Diagnostic Data EKG Results Normal sinus rhythm, intervals within normal range, no ischemic changes. Other Results Head CT shows small subarachnoid hemorrhage at the vertex of right frontal lobe, no subdural collection, no mass effect, no midline shift. ------ Left shoulder x-ray shows no bones or joints abnormality. ------ Left wrist x-ray shows a possible subtle mid waist fracture of the navicular bone, and after discussing with orthopedic surgeon, possible scaphoid fracture as well. OF NOTE, patient is already on a wrist splint. Assessment/Plan Assessment: 82-year-old male with past medical history of hypertension, hyperlipidemia, is here after sustaining a fall and loss of consciousness earlier today. His labs, imaging, and clinical examination are mentioned above. He is currently being admitted in the intensive care unit for the to following issues: #Hemorrhagic CVA (subarachnoid hemorrhage, Right frontal lobe), status post fall The cause of his CVA is fall injury, and although the affected area seems to be small, and his NIH stroke scale is 0 right now, he did lose his consciousness. * Admit the patient to ICU * Frequent vitals and neuro checks/NIH SS * Will contact neurosurgery immediately if changes in mental status, or focal neurologic deficits noted. Will get an immediate imaging of the head as well then. * Neurosurgery consulted, assured that no further neurosurgical interventions required at this point of time, but will reassess/reconsider if his neurological signs change. We'll follow their recommendations. * PT/OT eval * No antithrombotics or pharmacological DVT prophylaxis for now, given his hemorrhagic CVA. #C7 spinous process displaced fracture, status post fall Neurosurgical consultation agreed with the cervical collar, and frequent neurochecks, and mentioned no surgical interventions required at this point. Will inform neurosurgery immediately if any focal neurologic deficit is noted. #Possible Left navicular/scaphoid fracture, status post fall * Will keep the patient in left wrist splint and will order left thumb spika splint as soon as available. * Following Orthopedics for further eval and recs. #Left shoulder soft tissue injury, status post fall After the fall, patient has been complaining of left shoulder pain although the x-ray does not show any bone or joint abnormality, soft tissue injury is possible. * Adequate pain management * Will follow orthopedics for further eval (?MRI) and treatment #Hyponatremia, likely multifactorial Because of his hyponatremia at 125 could be multifactorial, including decreased intake as he had dry mucous membranes on examination, or chronic beer intake as he drinks 5 beers daily, the last one being yesterday. * We'll run IV fluids normal saline at 75 mL per hour, and encourage oral intake. * Obtaining urine and serum oslolality, and urine lytes, although at this point it seems that his cause of hyponatremia is hypovolemia * Repeating it in the morning #Hypomagnesemia Patient's magnesium was found to be 1.1, and was repeated in the emergency department. * Will monitor closely, repeating one tonight and tomorrow * Target level is 2 #JASPREET Patient's baseline creatinine is 1.6, but his creatinine today is 2.2, likely secondary to decreased oral intake, given his dry mucous membrane. * We'll continue gentle IV hydration and encourage oral intake * We'll repeat his RFT tomorrow AM * Nephrology will be consulted for both hyponatremia and JASPREET. #Chronic alcohol abuse Patient drinks 5 beers every day, the last one being yesterday, thus is at risk of having alcohol withdrawal symptoms, seizure, DT, thus will keep patient on CIWA scores for now and if his scores increase, will place him on benzos per protocol. * Consider social work consultation during this admission. #Hypertension We'll continue home dose of antihypertensive medications. #Hyperlipidemia Will continue home med of statin. #Pain management Patient has had morphine as well as IV Tylenol in the emergency department without much relief, and with his small subarachnoid hemorrhage, aspirin/NSH are not a good option currently. * We will try a local pain management with Lidoderm patch * For mild pain- by mouth Tylenol, for moderate pain-IV acetaminophen, for severe pain- morphine 2 mg IV PRN. We will be cautious for the side effect of opiates in someone who has stroke, kristel while reassessing for NIHSS. UPDATE: IV Morphine was not adequate for pain management for the patient, and he was wide alert in pain 10/10 despite getting 10 mg IV so far, so will switch to PO Dilaudid 2 mg PO q4PRN for severe pain. This can be increased to 4 mg PO Dilaudid q4PRN, looking at the conversion chart. * Also, arm sling pouch/arm sling can help reduce the pain too, once available. #Diet: Regular diet.heart healthy diet #DVT ppx: ALPS only, given hemorrhagic CVA #Code status: Full code As Ranked By This Provider Problem List: 1. Fall 2. Syncope 3. Subarachnoid bleed 4. Spinous process fracture 5. Left wrist fracture 6. JASPREET (acute kidney injury) 7. Hyponatremia 8. Hypomagnesemia 9. Carotid stenosis 10. Hypertension 11. HLD (hyperlipidemia) Core Measures/Misc (06/28) Acute Coronary Syndrome ACS Diagnosis: No Congestive Heart Failure Congestive Heart Failure Diagnosis No Cerebrovascular Accident CVA/TIA Diagnosis: Yes NIH Stroke Scale: Total 0 Date Last Known Well: 01/04/18 Time Last Known Well: 929 Symptom Start Date: 01/04/18 Symptom Start Time: 930 Reason tPA not ordered Medical Contraindication Swallow Evaluation Pass Current/Past Hx AFib/AFlutter No No Antithrombotic d/t Hemorrhagic CVA No Anticoagulant d/t Medical Contraindication (Hemorrhagic CVA (SAH)) VTE (View Protocol) VTE Risk Factors Smoker No Mechanical VTE Prophylaxis d/t N/A MechProphylax Ordered No VTE Pharm Prophylaxis d/t Hemorrhagic CVA Sepsis (View protocol) Sepsis Present: No Danis Smith MD 01/04/185: Attending MD Review Statement Attending Statement Attending MD Statement: examined this patient, discuss w/resident/PA/ADMINISTRATOR PESTICIDE, agreed w/resident/PA/ADMINISTRATOR PESTICIDE, discussed with family, reviewed EMR data (avail), reviewed images, amended to note Attending Assessment/Plan: The patient is an 82 yo male with h/o HTN, HL, CKD, & GERD who presented in the Ed after falling down a flight of stairs- 12 steps (?syncope). He was amnestic of the details and stated he woke up at the bottom of the stairs. He denied any prior chest pain, dyspnea, palpitations, etc. He has had hyponatremia noted on recent blood tests at PCP office as per family (?130). He does endorse that his normal habit is to drink 4-5 beers/day. He also drinks "gator aide". He denied any significant headache. Does note moderate to severe left shoulder pain and mild posterior cervical pain. CT revealed small subarachnoid hemorrhage (no surgery required per neurosurgery). Also had C7 spinous process fracture. He had no bony fractures noted on left shoulder films. He does state that he had a "heart attack" 20 years ago, however no recent cardiology evaluations. He had been seeing Dr. Good as his PCP, however now seeing PT in group along with Dr. Amato. In the ED his Na was noted to be 125 with Cr 2.2 (baseline 1.6). Physical Exam: VS: T 97.1, P 58, R 20, BP 159/66, PO 97% RA HEENT: eyes- PERRLA, EOMI steven- dry mucosa Neck: in soft collar at time of my exam Chest: clear Cor: RRR nl S1, S2 w/o murm Abd: BS+, soft, NT, - masses of HSM Ext: no edema, pulses 2+ both UE/LE- did not fully examine left shoulder as having severe pain on movement (negative X-rays). Neuro: alert & oriented, non-focal exam Labs/Tests- as above Impression/Plan: #Subarachnoid Hemmorhage- as noted patient fell down flight of 12 stairs. Small frontal SDH noted on CT- not requiring surgery per neurosurgery. Plan: Admit to ICU with q1hr neuro checks. If any neuro changes, repeat CT. No anti-coagulants. Neurosurgery follow-up. #Cervical Spine Fracture- noted C7 spinous process fracture. No need for surgical intervention. Plan: Agree with soft collar- neurosurgical follow-up. #Left Shoulder Pain- no obvious fracture on X-ray, however exam limited due to pain. ? rotator cuff tear. Plan: Orthopedic consult. IV morphine given for pain relief. Will need shoulder immobilizer. #S/P Syncope- patient amnestic of events leading to fall/etc. No cardiac symptoms or EKG findings. May be related to hyponatremia. Neuro exam is non- focal. Plan: Will observe on cardiac tech in ICU. Agree with ECHO. #Hyponatremia- According to family the patient has had some degree of hyponatremia as OP (?130) and now more severe. Most likely is hyponatremia secondary to volume depletion (is on Lasix and drinks beer). ? SIADH. Plan: Agree with NS at 50 cc/hr and follow-up Na in 4 hours. Nephrology consult. Check urine lytes and osms. Hold Lasix. #JASPREET/CKD- patient with Cr 2.2 and and baseline 1.6. Most likely related to volume depletion. Plan: Follow-up BEP with hydration. If not coming down consider renal US. Nephrology to see. #EtOH Overuse- as above, patient has been drinking 4-5 beers/day for long time. No h/o withdrawal. Plan: MVI, thiamine, folic acid, and CIWA scoring. If any signs of withdrawal may need Ativan. #Hypertension- patient has been on Amlodipine/Metoprolol. Plan: Follow BP closely on Amlodipine and Metoprolol. #Hyperlipidemia- on Pravachol. Plan: Continue Statin. #GERD- on Omeprazole. Plan: Continue Omeprazole. Discussed with family- will most likely need STR after stabilization as he lives alone.
--- NOTE | 2018-01-04 20:28 | PN- Neurosurgical ---
Surgical Brief Attending Note Brief Attending Note: Pt is an 82yo male presents to ED s/p fall down stairs at home resulting in mechanical fall, possible brief LOC, presented with neck and left shoulder pain and noted to have minimally displaced C7 spinous process fracture without canal stenosis or neural compression as well as minimal right frontal focus of SAH. Films have been personally reviewed. Pt has h/o prior C5-7 instrumented anterior spinal fusion as well as posterior C3-6 decompressive laminectomy with multilevel spondylosis, bridging osteophytes above and below the fusion with no evidence of nerve/cord impingement. Also with minor CHI. No indication for neurosurgical intervention needed. Rec: -soft cervical collar for comfort -hold all anticoagulants including asa, NSAIDS -SCD's/mikayla hose for DVT prophylaxis -q2hr neuro checks, repeat head CT if there is change or deterioration of neurologic exam status -if stable, no need for any additional neurosurgical treatment or followup other than medical fu -call with questions
[2018-01-04 21:10] VITALS: BP 142/62
[2018-01-04 21:55] LABS: ABSOLUTE BASOPHIL COUNT 0 /CUMM (0.0-0.2); ABSOLUTE EOSINOPHIL COUNT 0 /CUMM (0.0-0.7); ABSOLUTE GRANULOCYTE CT 3.8 /CUMM (1.4-6.5); ABSOLUTE LYMPH COUNT 0.8 /CUMM (1.2-3.4); ABSOLUTE MONOCYTE COUNT 0.5 /CUMM (0.10-0.60); BASOPHIL % 0.5 % (0.0-2.0); EOSINOPHIL % 0.3 % (0-5); GRANULOCYTE % 74.5 % (42.2-75.2); MEAN CORPUSCULAR VOLUME 97.1 FL (80.0-94.0); MEAN PLATELET VOLUME 6.3 FL (7.4-10.4); PLATELET COUNT 255 /CUMM (130-400); RBC DISTRIBUTION WIDTH 13.5 % (11.5-14.5); WHITE BLOOD CELL COUNT 5.1 /CUMM (4.8-10.8)
--- NOTE | 2018-01-04 22:52 | Admission Certification ---
Admission Certification Certification Statement - As attending physician, I certify that at the time of - admission, based on clinical presentation, severity of - symptoms, need for further diagnostic testing and - therapeutic interventions, and risk of adverse outcomes - without in-hospital treatment, in my clinical assessment, - this patient requires an acute hospital stay for a minimum - of two nights or longer. I have also considered psychsocial - factors such as support system, advanced age, financial - issues, cognitive issues, and failed out-patient treatments, - past re-admission history, safety of patient, and lack of - compliance as applicable. Specific rationale supporting this admission is: The patient presents in the ED after syncopal event and fall down flight of 12 stairs. Resulting in small subdural hematoma, C7 spinous process fracture, and left should injury (?rotator cuff). Needs ICU for q1 hr neuro checks, Neurosurgical and Orthopedic consults. Also eval and Rx severe hyponatremia 124 and JASPREET.
[2018-01-05] VITALS (11 sets, daily range): BP systolic 116–156; BP diastolic 60–76
[2018-01-05 05:16] LABS: ABSOLUTE BASOPHIL COUNT 0 /CUMM (0.0-0.2); ABSOLUTE EOSINOPHIL COUNT 0.1 /CUMM (0.0-0.7); ABSOLUTE GRANULOCYTE CT 2.8 /CUMM (1.4-6.5); ABSOLUTE MONOCYTE COUNT 0.6 /CUMM (0.10-0.60); BASOPHIL % 0.7 % (0.0-2.0); EOSINOPHIL % 1.7 % (0-5); HEMATOCRIT 29.4 % (42-52); MEAN CORPUSCULAR HGB 33.2 PG (27.0-31.0); MEAN CORPUSCULAR HGB CONC 34.5 G/DL (33.0-37.0); MEAN CORPUSCULAR VOLUME 96.1 FL (80.0-94.0); MEAN PLATELET VOLUME 6.8 FL (7.4-10.4); PLATELET COUNT 243 /CUMM (130-400); RBC DISTRIBUTION WIDTH 13.5 % (11.5-14.5); RED BLOOD CELL CT 3.06 /CUMM (4.70-6.10); WHITE BLOOD CELL COUNT 4.4 /CUMM (4.8-10.8)
--- NOTE | 2018-01-05 07:35 | PN- Resident CRCU ---
Harpreet Casillas 01/05/18 0735: Subjective HPI/CRCU Issues: -Hemorrhagic CVA (subarachnoid hemorrhage, Right frontal lobe), status post fall -C7 spinous process displaced fracture -Possible Left scaphoid fracture -Left shoulder soft tissue injury -Acute on chronic Hyponatremia -Hypomagnesemia -JASPREET on CKD stage 3 24 Hour Events: Patient was seen and examined today. Patient alert, awake, oriented 3. He still complaining of pain of the left shoulder and wrist. he deny any focal neurological deficit, chest pain, heart racing, difficulty breathing. He passed the bedside swallowing evaluation. Patient current vital signs stable. He is + 500 mL fluid balance. His is CIWA 1-4. Objective Vital Signs & I&O Last 8 Hrs of Vitals and I&O: Vital Signs Date Time Temp Pulse Resp B/P B/P Pulse O2 O2 Flow FiO2 Mean Ox Delivery Rate 01/05 08 98.8 66 15 144/72 01/05 0800 98.7 82 20 138/70 96 Room Air 01/05 0600 98.5 68 12 132/63 01/05 0400 98.5 68 14 116/61 Exam General Appearance: well developed/nourished, alert, awake, C-collar noted Head: atraumatic Neck: c-collar noted Respiratory: normal breath sounds, chest non-tender, no respiratory distress Cardiovascular: regular rate/rhythm, murmur Gastrointestinal: normal bowel sounds, soft, non-tender, no organomegaly Extremities: normal inspection, no edema, left sling noted. , power 4/5 in both lower Exts. Cranial Nerves: normal hearing, normal speech, PERRL Current Medications: Current Medications Sig/Keven Start time Last Medication Dose Route Stop Time Status Admin Acetaminophen 650 MG Q6P PRN 01/04 2145 AC PO Acetaminophen 1,000 MG Q6P PRN 01/04 2145 AC 01/05 IV 0042 Acetaminophen 0 .STK-MED ONE 01/04 1906 DC IV Acetaminophen 1,000 MG ONCE ONE 01/04 1900 DC 01/04 N/A 1 UNIT IV 01/04 Amlodipine Besylate 5 MG DAILY 01/05 1000 AC PO Atorvastatin Calcium 20 MG 1700 01/05 1700 AC PO Folic Acid 1 MG DAILY 01/05 1000 AC PO Furosemide 20 MG DAILY 01/05 1000 CAN PO Hydromorphone HCl 2 MG Q4P PRN 01/04 2330 AC 01/05 PO 0757 Ibuprofen 400 MG ONCE ONE 01/04 1515 DC 01/04 PO 01/04 1516 1503 Lidocaine 1 PAT Q24H 01/04 2145 AC 01/04 EXT 2344 Magnesium Sulfate 1 GM Q2H 01/04 1900 DC 01/04 Dextrose/Water 100 ML IV 01/04 2259 205 Metoprolol Succinate 25 MG DAILY 01/05 1000 AC PO Morphine Sulfate 2 MG Q4P PRN 01/04 2145 DC 01/04 IV 2150 Morphine Sulfate 0 .STK-MED ONE 01/04 1753 DC .ROUTE Morphine Sulfate 4 MG ONCE ONE 01/04 1745 DC 01/04 IV 01/04 1746 1756 Morphine Sulfate 0 .STK-MED ONE 01/04 1556 DC .ROUTE Morphine Sulfate 4 MG ONCE ONE 01/04 1545 DC 01/04 IV 01/04 1546 1646 Multivitamins 1 TAB DAILY 01/05 1000 AC PO Omeprazole 20 MG DAILY 01/05 1000 AC PO Sodium Chloride 1,000 ML Q13H 01/04 1945 AC 01/04 IV 2020 Thiamine HCl 100 MG DAILY 01/05 1000 AC PO 01/07 1001 Thiamine HCl 0 .STK-MED ONE 01/05 2048 DC .ROUTE Thiamine HCl 200 MG ONCE ONE 01/04 2015 DC 01/04 Sodium Chloride 50 ML IV 01/04 Results Results: Laboratory Tests 01/05/18 0645: Urine Color YEL, Urine Clarity CLEAR, Urine pH 6.0, Ur Specific [place] 1.020, Urine Protein TRACE H, Urine Ketones TRACE H, Urine Nitrite NEG, Urine Bilirubin NEG, Urine Urobilinogen 0.2, Ur Leukocyte Esterase NEG, Ur Microscopic SEDIMENT EXAMINED, Urine RBC RARE, Urine WBC 1-3 H, Urine Mucus FEW, Urine Hemoglobin TRACE-INTACT H, Urine Glucose 100 H 01/05/18 0645: Urine Osmolality Pending, Ur Random Creatinine 70.5, Ur Random Sodium 53, Ur Random Potassium 32.5, Fraction Sodium Excret 1.0 01/05/18 0410: Troponin I 0.02 01/05/18 0410: Anion Gap 10, Estimated GFR 39 L, BUN/Creatinine Ratio 9.4, Phosphorus 4.7 H, Magnesium 1.9, Triglycerides 32, Cholesterol 130, LDL Cholesterol, Calc 40 L, HDL Cholesterol 84 H, Cholesterol/HDL Ratio 2, CBC w Diff NO MAN DIFF REQ, RBC 3.06 L, MCV 96.1 H, MCH 33.2 H, MCHC 34.5, RDW 13.5, MPV 6.8 L, Gran % 63.0, Lymphocytes % 21.9, Monocytes % 12.7 H, Eosinophils % 1.7, Basophils % 0.7, Absolute Granulocytes 2.8, Absolute Lymphocytes 1.0 L, Absolute Monocytes 0.6, Absolute Eosinophils 0.1, Absolute Basophils 0 01/04/182139: Serum Osmolality 260 L, Troponin I 0.02 01/04/182139: Anion Gap 11, Estimated GFR 36 L, Glucose 153 H, Calcium 8.9, Phosphorus 3.9, Magnesium 2.0, Total Bilirubin 0.6, AST 27, ALT 32, Albumin 3.4 L, CBC w Diff NO MAN DIFF REQ, RBC 3.30 L, MCV 97.1 H, MCH 32.0 H, MCHC 33.0, RDW 13.5, MPV 6.3 L, Gran % 74.5, Lymphocytes % 15.0 L, Monocytes % 9.7 H, Eosinophils % 0.3, Basophils % 0.5, Absolute Granulocytes 3.8, Absolute Lymphocytes 0.8 L, Absolute Monocytes 0.5, Absolute Eosinophils 0, Absolute Basophils 0 01/04/181957: Serum Osmolality Cancelled 01/04/18 153: Anion Gap 15, Estimated GFR 29 L, BUN/Creatinine Ratio 7.7, Glucose 98, Hemoglobin A1c Pending, Lactic Acid 2.0, Calcium 9.9, Magnesium 1.1 L, Total Bilirubin 0.8, AST 29, ALT 29, Alkaline Phosphatase 96, Creatine Kinase 183 H, Troponin I < 0.01, Total Protein 7.5, Albumin 4.1, Globulin 3.4, Albumin/ Globulin Ratio 1.2, Vitamin B12 926, Folate > 20.0 H, CBC w Diff NO MAN DIFF REQ, RBC 3.53 L, MCV 96.8 H, MCH 33.0 H, MCHC 34.1, RDW 13.4, MPV 6.5 L, Gran % 81.3 H, Lymphocytes % 9.5 L, Monocytes % 8.7, Eosinophils % 0.2, Basophils % 0.3, Absolute Granulocytes 6.5, Absolute Lymphocytes 0.8 L, Absolute Monocytes 0.7 H, Absolute Eosinophils 0, Absolute Basophils 0 01/04/18 1531: Creatine Kinase Cancelled Impression/Plan Impression/Problem List Impression: This is 82-year-old male with past medical history of hypertension, hyperlipidemia,CKD stage 3, Ch. Hyponatremia, alcohol dependence, is here after sustaining a fall and loss of consciousness. 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 -Hypomagnesemia -JASPREET on CKD stage 3 -Alcohol dependence Plan: -Continue NIH every 2 -Neurology consultation pending -Orthopedic consultation pending -Neurosurgery signed off the case as No surgical intervention required for now. -We'll repeat head CAT scan tomorrow -Increase the dose of atorvastatin to 40 mg -Fluid restriction as recommended by nephrology. -Avoid delirium triggered giving the patient age. So we will Change the pain Meds to be Tylenol when necessary the clock, as needed IV Tylenol, by mouth Dilaudid every 12 for severe pain. -Check the patient TSH, free T4. -We will obtain cardiology consultation for tomorrow -Echocardiogram results pending -Continue CIWA monitoring -Cont hold any blood thinners or NSAIDs -PT recommend short-term rehabilitation. -Regular diet -Patient will need further evaluation of his unintentional weight loss with his primary care doctor after discharge. Problem List: 1. HLD (hyperlipidemia) 2. Hypertension 3. Carotid stenosis 4. Hyponatremia Pain Ratin Pain Location: left shoulder shoulder Pain Goal: Pain 4 or less Pain Plan: see A/P Tomorrow's Labs & Rationales: cbc icu Plan DVT/Prophylaxis: Danis Miller MD 01/05/18 1518: Attending MD Review Statement Attending Sign Off Attending Cosign Statement: I have: examined this patient, reviewed [facility] EMR data, personally reviewd images, discussd w/resident/PA/SOLAR INSTALLER TECHNICIAN, agreed w/resident/PA/SOLAR INSTALLER TECHNICIAN, amended to note. Other Findings: The patient was seen and discussed with house staff. The patient is alert. Results of carotid US noted (unrelated to bleed). Appreciate nephrology input. Await orthopedic and cardiology input. Neurosurgical follow-up appreciated. Continue to follow sodium.
--- NOTE | 2018-01-05 10:23 | PN- Neurosurgical ---
Surgical Brief Attending Note Brief Attending Note: Pt awake and alert conversive and appropriate left arm in sling, moving remaining extrem without difficulty speech clear and fluent, face sym gait not tested mild tenderness to palpation post lower c-spine, baseline atrophy of paracervical muscles related to prior laminecomy. A/P: Pt stable neurologically. Tolerating soft collar without problem. No further neurosurgical issues at this point. Will sign off. call with questions.
--- NOTE | 2018-01-05 10:29 | Cons- Nephrology ---
General Information and HPI Consulting Request Date of Consult: 01/05/18 Requested By: Danis Smith MD Reason for Consult: Hyponatremia; JASPREET Source of Information: patient, old records Exam Limitations: no limitations History of Present Illness: The patient is an 82-year-old gentleman with a past history that includes hypertension, hyperlipidemia, CKD stage III with serum creatinine levels that have ranged from 1.4-1.9 over the past 10+ years and a tendency toward hyponatremia albeit mild with serum sodium levels that have ranged from 131-134 from 2005 through June 2017. The patient is unaware of any previous problem with his kidneys or her serum sodium levels. He now comes in after falling down a flight of stairs with loss of consciousness and was found to have a subarachnoid hemorrhage but with no focal neurologic defects and well maintained mental status and cognitive function. I am being asked to see him because of a serum creatinine of 2.2 on admission yesterday (down to 1.7 today) and hyponatremia with a serum sodium as low as 121 on admission but up to 124 earlier this morning and 127 now. He was treated with IV fluids which have since been discontinued and he is now off fully awake and alert, able to take by mouth well. It should be noted that he drinks 3-5 beers every day although he claims that he was not drinking prior to the fall which occurred at ~11 AM yesterday. Urinalysis shows only trace dipstick proteinuria, there is no history of diabetes mellitus and there has been no recent exposure to NSAIDs, antibiotics or parenteral contrast. Other injuries from the fall include spinous process fracture, soft tissue injury to his left shoulder and a possible scaphoid fracture of the left wrist. Past medical history positive for hypertension, hyperlipidemia and a remote myocardial infarction. As already noted, he has a history of chronic kidney disease based on serum creatinine levels over the past 10+ years and a tendency towards mild hyponatremia. Outpatient medications include amlodipine, metoprolol, furosemide 20 mg daily, omeprazole and pravastatin. Allergies: No known drug allergies Family history negative for any known kidney disease or endocrine disorders in his parents or other family members Social history: Patient lives alone, , formerly worked in [employer]", drinks 3-5 beers a day but denies that he is an alcoholic, former smoker, no history of drug abuse. Allergies/Medications Allergies: Coded Allergies: No Known Allergies (06/30/17) Home Med List: Amlodipine Besylate 5 MG TABLET 1 TAB PO DAILY HTN (Reported) Furosemide 20 MG TABLET 1 TAB PO DAILY HTN (Reported) Metoprolol Succ XL (Toprol XL) 25 MG TAB 1 TAB PO DAILY HTN (Reported) Omeprazole 20 MG CAPSULE.DR 1 CAP PO DAILY GERD (Reported) Pravastatin Sodium (Pravachol) 40 MG TABLET 1 TAB PO DAILY CHOLESTEROL ( Reported) Review of Systems Review of Systems: Constitutional: Reports: no symptoms. EENTM: Reports: no symptoms. Cardiovascular: Reports: no symptoms. Respiratory: Reports: no symptoms. GI: Reports: no symptoms. Genitourinary: Reports: no symptoms. Musculoskeletal: Reports: see HPI. Skin: Reports: no symptoms. Neurological/Psychological: Reports: see HPI (LOC). Hematologic/Endocrine: Reports: no symptoms. All Other Systems: Reviewed and Negative Past History Travel History Traveled to [place] past 21 day No Medical History Blood Transfusion Hx: No Neurological: NONE EENT: NONE Cardiovascular: hypertension, hyperlipidemia Respiratory: NONE Gastrointestinal: NONE Hepatic: NONE Renal: NONE Musculoskeletal: C-SPINE DISK FUSION Psychiatric: NONE Endocrine: NONE, HYPONATREMIA Blood Disorders: NONE Cancer(s): NONE REJOGGER/Reproductive: NONE Surgical History Surgical History: spinal fusion (ant/post cervical fusion) Psychosocial History Where Do You Live? Home Services at Home: None Primary Language: Romanian Smoking Status: Former Smoker (1.5 pack/day, quit 20 yrs ago) ETOH Use: daily 4 beers, last drink last night Illicit Drug Use: denies illicit drug use Living Will? yes Power of [facility] Technician/HCP? daughters (both) per patient Functional Ability ADLs Independent: dressing, eating, toileting, bathing. Ambulation: independent IADLs Independent: shopping, housework, finances, food prep, telephone, transportation , medication admin. 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 Exam & Diagnostic Data Vital Signs and I&O Vital Signs Date Time Temp Pulse Resp B/P B/P Pulse O2 O2 Flow FiO2 Mean Ox Delivery Rate 01/05 1003 82 114/58 01/05 1002 84 114/58 01/05 0930 98.8 86 20 01/05 0800 98.8 66 15 144/72 01/05 0800 96 Room Air 01/05 0800 98.7 82 20 138/70 96 Room Air 01/05 0600 98.5 68 12 132/63 01/05 0400 98.5 68 14 116/61 01/05 0000 Room Air 01/05 0000 98.1 70 14 150/60 01/05 0000 98.1 70 14 150/60 98 Room Air Room Air 01/04 2110 99.1 78 24 142/62 01/04 2045 97.6 74 18 155/73 100 Room Air 01/04 1932 97.3 75 18 152/69 97 Room Air 01/04 1659 77 20 182/79 98 Room Air 01/04 1620 97 Room Air 01/04 1458 97.1 68 20 159/66 97 Room Air Intake & Output 01/05 1600 01/05 0400 01/04 1600 01/04 0400 01/03 1600 01/03 0400 Intake Total 833 690 Output Total 150 300 Balance 683 390 Intake, IV 753 450 Intake, Oral 80 240 Number 0 0 Bowel Movements Output, Urine 150 300 Patient 146 lb 130 lb Weight Weight Bed scale Reported by Patient Measurement Method Physical Exam: General: Well-developed, elderly white male, and a soft cervical collar and with his left arm in a sling, awake, alert and in no acute distress Skin: No rash or jaundice HEENT: Conjunctivae pink, sclerae anicteric, mucous membranes moist Neck: Cervical collar; neck not examined Chest: Clear to P&A Heart: Regular rate and rhythm without S3 or rub Abdomen: Soft and nontender without palpable masses or organomegaly Extremities: Without cyanosis or edema; left arm in a sling, left wrist splinted Neuro: Awake and alert, cognitively intact, speech within normal limits, no focal findings, no asterixis or myoclonus Assessment/Plan Assessment/Recommendations Assessment: 82-year-old gentleman with subarachnoid hemorrhage and multiple somatic injuries as described without any apparent neurologic deficit but with an elevated creatinine and depressed serum sodium at time of admission. 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 Also has a tendency towards hyponatremia which I suspect is in part related to daily, significant beer intake. The acute hyponatremia may be on the basis of SIADH due to head injury in setting of decreased renal function. In any event, both renal function and serum sodium levels appear to be improving nicely and at a reasonable rate. Recommendations: 1. No further IV fluids needed 2. Temporarily limit by mouth fluids 2000 mL per day 3. Please add a serum uric acid level to this morning's blood work 4. Continue to monitor chemistries 5. Neurosurgical follow-up 6. He will need outpatient follow-up regarding his renal function and electrolytes with his PCP and/or nephrology Thank you. Will follow up.
--- NOTE | 2018-01-05 18:09 | ECHOCARDIOGRAM REPORT ---
SHERRY FUENTES Age: 82 : 1935 Gender: M Exam Date: 01/05/2018 11:21 Exam Location: [facility] Ht (in): 68 Wt (lb): 146 BSA: 1.78 BP: 114 / 58 Ordering Physician: Yohannes Holley MD Referring Physician: Js Lynch MD Chief, SoC Technologist: Jacqueline Lamas [facility] Room Number: [id number] Indications: PRESYNCOPE/SYNCOPE Rhythm: Sinus Technical Quality: Good FINDINGS Left Ventricle Normal global left ventricular size, wall thickness, systolic function with no obvious regional wall motion abnormalities. Left ventricular ejection fraction is estimated at >65 %. Abnormal relaxation filling pattern of the left ventricle for age (stage 1 diastolic dysfunction). Right Ventricle The right ventricle is normal in size and function. Right Atrium The right atrium is normal in size. Left Atrium The left atrium is normal in size. The interatrial septum is intact. Mitral Valve Mild thickening/calcification of the mitral valve leaflets. Mild mitral annular calcification. Trace to mild mitral regurgitation. Aortic Valve Focal thickening of the aortic valve cusps. No aortic stenosis. No aortic regurgitation. Tricuspid Valve The tricuspid valve is normal in structure and function. There is trace tricuspid regurgitation. Pulmonary artery systolic pressure is normal. Pulmonic Valve Pulmonic valve not well visualized, grossly normal. Trace pulmonic regurgitation. Pericardium Normal pericardium without effusion. No pleural effusion. Great Vessels Normal aortic root dimension. The aortic arch and great vessels are not visualized. CONCLUSIONS Normal global left ventricular size, wall thickness, systolic function with no obvious regional wall motion abnormalities. Left ventricular ejection fraction is estimated at >65 %. Abnormal relaxation filling pattern of the left ventricle for age (stage 1 diastolic dysfunction). The left atrium is normal in size. Mild thickening/calcification of the mitral valve leaflets. Mild mitral annular calcification. Trace to mild mitral regurgitation. Focal thickening of the aortic valve cusps. No aortic stenosis. Pulmonary artery systolic pressure is normal. Js Lynch M.D. (Electronically Signed) Final Date: 05 January 2018 18:09 MEASUREMENTS (Male / Female) Normal Values 2D ECHO LV Diastolic Diameter PLAX 4.8 cm 4.2 - 5.9 / 3.9 - 5.3 cm LV Systolic Diameter PLAX 3.2 cm 2.1 - 4.0 cm LV Fractional Shortening PLAX 33.3 % 25 - 46 % LV Ejection Fraction 2D Teich 61.9 % IVS Diastolic Thickness 1.1 cm LVPW Diastolic Thickness 0.9 cm LV Relative Wall Thickness 0.4 RV Internal Dim ED PLAX 2.7 cm 1.9 - 3.8 cm LVOT Diameter 1.9 cm LA Systolic Diameter LX 4.0 cm 3.0 - 4.0 / 2.7 - 3.8 cm LA Volume 40.0 cm 18 - 58 / 22 - 52 cm Ascending Aorta Diameter 3.0 cm DOPPLER AV Peak Velocity 158.0 cm/s AV Peak Gradient 10.0 mmHg AV Mean Velocity 103.0 cm/s AV Mean Gradient 5.0 mmHg AV Velocity Time Integral 35.1 cm LVOT Peak Velocity 103.0 cm/s LVOT Peak Gradient 4.2 mmHg LVOT Mean Velocity 62.8 cm/s LVOT Mean Gradient 2.0 mmHg LVOT Velocity Time Integral 20.3 cm LVOT Stroke Volume 57.6 cm AV Area Cont Eq vti 1.6 cm AV Area Cont Eq pk 1.8 cm MV Peak Velocity 102.0 cm/s MV Peak Gradient 4.2 mmHg MV Mean Velocity 56.8 cm/s MV Mean Gradient 1.0 mmHg Mitral E Point Velocity 73.1 cm/s Mitral A Point Velocity 84.9 cm/s Mitral E to A Ratio 0.9 MV PHT Velocity 70.8 cm/s MV Deceleration [place] 135.0 cm/s MV Pressure Half Time 157.3 ms MV Area PHT 1.4 cm MV Deceleration Time 306.0 ms TR Peak Velocity 258.0 cm/s TR Peak Gradient 26.6 mmHg Right Atrial Pressure 10.0 mmHg Pulmonary Artery Systolic Pressu 36.6 mmHg Right Ventricular Systolic Press 36.6 mmHg PV Peak Velocity 105.0 cm/s PV Peak Gradient 4.4 mmHg PV Mean Velocity 69.9 cm/s PV Mean Gradient 2.0 mmHg PV Velocity Time Integral 21.3 cm LV E' Lateral Velocity 8.1 cm/s Mitral E to LV E' Lateral Ratio 9.0 LV E' Septal Velocity 5.4 cm/s Mitral E to LV E' Septal Ratio 13.6
[2018-01-06] VITALS (12 sets, daily range): BP systolic 140–166; BP diastolic 62–84
[2018-01-06 04:59] LABS: ABSOLUTE BASOPHIL COUNT 0 /CUMM (0.0-0.2); ABSOLUTE EOSINOPHIL COUNT 0.3 /CUMM (0.0-0.7); ABSOLUTE GRANULOCYTE CT 2.1 /CUMM (1.4-6.5); ABSOLUTE LYMPH COUNT 1.1 /CUMM (1.2-3.4); ABSOLUTE MONOCYTE COUNT 0.5 /CUMM (0.10-0.60); BASOPHIL % 0.9 % (0.0-2.0); GRANULOCYTE % 51.9 % (42.2-75.2); HEMATOCRIT 30.2 % (42-52); MEAN CORPUSCULAR HGB 33.1 PG (27.0-31.0); MEAN CORPUSCULAR VOLUME 97.3 FL (80.0-94.0); MEAN PLATELET VOLUME 6.7 FL (7.4-10.4); PLATELET COUNT 237 /CUMM (130-400); RBC DISTRIBUTION WIDTH 13.4 % (11.5-14.5); WHITE BLOOD CELL COUNT 4.1 /CUMM (4.8-10.8)
--- NOTE | 2018-01-06 06:31 | CT SCAN REPORT ---
EXAMINATION: CT HEAD WITHOUT CONTRAST CLINICAL INFORMATION: Follow-up abnormal exam. Follow-up subarachnoid hemorrhage. COMPARISON: January 04, 2018. TECHNIQUE: Contiguous helical images of the brain were obtained without IV contrast. Multiplanar reconstructions were performed. DLP: 681 mGy-cm. FINDINGS: There is an equivocal decrease in subarachnoid blood overlying the right vertex. No new hemorrhage is identified. The lateral, third, fourth ventricles are mildly prominent, though stable, age-appropriate and concordant with the appearance of the sulci. There is likely a tiny focus of blood within the right occipital horn demonstrated on image 36/72. There is no evidence for acute intraparenchymal hemorrhage or infarct. There is neither mass nor mass effect. There is no shift of midline structures. There is patchy opacification within the ethmoid sinuses. The paranasal sinuses and mastoid air cells are otherwise clear. There are no osseous lesions. IMPRESSION: Equivocal decrease in amount of subarachnoid blood overlying the right vertex. No new blood is identified. Stable age-appropriate cerebral atrophy.
--- NOTE | 2018-01-06 08:08 | PN- Resident CRCU ---
See Addendum Subjective HPI/CRCU Issues: -Hemorrhagic CVA (subarachnoid hemorrhage, Right frontal lobe), status post fall -C7 spinous process displaced fracture -Possible Left scaphoid fracture -Left shoulder soft tissue injury -Acute on chronic Hyponatremia -Hypomagnesemia -JASPREET on CKD stage 3 24 Hour Events: Patient was seen and examined today. 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 He still complaining of pain of the left shoulder and wrist but he stated that he now can move his left shoulder. he deny any focal neurological deficit, chest pain, heart racing, difficulty breathing. Patient current vital signs stable. He is - 500 mL fluid balance. His is CIWA 1- 2 this Am his CIWA was 13 but during my assessment patient was doing fine. Objective Vital Signs & I&O Last 8 Hrs of Vitals and I&O: Vital Signs Date Time Temp Pulse Resp B/P B/P Pulse O2 O2 Flow FiO2 Mean Ox Delivery Rate 01/06 0800 98.1 74 18 156/70 01/06 0600 82 18 166/75 01/06 0400 98.0 78 20 140/84 01/06 0400 98 Room Air 01/06 0200 73 14 146/69 01/06 0000 97.9 68 16 144/80 01/06 0000 96 Room Air 01/06 0000 97.9 68 18 144/80 96 Room Air 01/05 2200 98.2 68 12 156/65 01/05 2000 98.2 60 19 140/76 01/05 1800 68 20 149/68 01/05 1600 98.2 68 17 132/74 01/05 1600 98.2 68 17 132/71 95 Room Air 01/05 1400 98.8 66 12 142/67 01/05 1200 98.8 70 26 148/68 01/05 1200 96 Room Air 01/05 1003 82 114/58 01/05 1002 84 114/58 01/05 0930 98.8 86 20 Intake & Output 01/06 1600 01/06 0800 01/06 0000 Intake Total 160 240 Output Total 550 550 Balance -390 -310 Intake, Oral 160 240 Output, Urine 550 550 Patient 143 lb Weight Weight Bed scale Measurement Method Exam General Appearance: well developed/nourished, alert, awake, comfortable Head: atraumatic, normal appearance Neck: normal inspection, supple Respiratory: normal breath sounds, chest non-tender, no respiratory distress Cardiovascular: regular rate/rhythm Gastrointestinal: normal bowel sounds, soft, non-tender, no organomegaly Extremities: no edema, Lt. shoulder range of motion improved Cranial Nerves: normal hearing, normal speech, PERRL Current Medications: Current Medications Sig/Keven Start time Last Medication Dose Route Stop Time Status Admin Acetaminophen 1,000 MG Q8 01/06 1400 AC IV Acetaminophen 500 MG Q8P PRN 01/06 0845 AC PO Acetaminophen 500 MG Q6 01/05 1800 DC 01/06 PO 0558 Acetaminophen 1,000 MG Q8 PRN 01/05 1324 AC IV 01/06 1359 Acetaminophen 650 MG Q6P PRN 01/04 2145 DC PO Acetaminophen 1,000 MG Q6P PRN 01/04 2145 DC 01/05 IV 0957 Amlodipine Besylate 5 MG DAILY 01/05 1000 AC 01/05 PO 1002 Atorvastatin Calcium 20 MG 1700 01/05 1700 DC PO Atorvastatin Calcium 40 MG 1700 01/05 1700 AC 01/05 PO 1619 Folic Acid 1 MG DAILY 01/05 1000 AC 01/05 PO 1003 Hydromorphone HCl 2 MG Q8P PRN 01/05 1545 DC 01/06 PO 0119 Hydromorphone HCl 2 MG Q12P PRN 01/05 1330 DC PO Hydromorphone HCl 2 MG Q4P PRN 01/04 2330 DC 01/05 PO 0757 Lidocaine 1 PAT Q24H 01/04 2145 AC 01/05 EXT 2101 Magnesium Oxide 400 MG BID 01/06 1000 AC PO 01/07 1001 Metoprolol Succinate 25 MG DAILY 01/05 1000 AC 01/05 PO 1003 Multivitamins 1 TAB DAILY 01/05 1000 AC 01/05 PO 1002 Omeprazole 20 MG DAILY 01/05 1000 AC 01/05 PO 1002 Oxycodone/ 1 TAB Q12P PRN 01/06 0845 AC Acetaminophen PO Polyethylene Glycol 17 GM DAILY PRN 01/06 0845 AC PO Senna/Docusate Sodium 1 TAB BID PRN 01/06 0845 AC PO Sodium Chloride 1,000 ML Q13H 01/04 1945 DC 01/04 IV 2020 Thiamine HCl 100 MG DAILY 01/05 1000 AC 01/05 PO 01/07 1001 1002 Results Results: Laboratory Tests 01/06/18 0400: Anion Gap 8, Estimated GFR 49 L, Glucose 103 H, Calcium 8.9, Phosphorus 3.8, Magnesium 1.4 L, Total Bilirubin 0.6, AST 20, ALT 24, Albumin 3.0 L, CBC w Diff NO MAN DIFF REQ, RBC 3.10 L, MCV 97.3 H, MCH 33.1 H, MCHC 34.0, RDW 13.4 , MPV 6.7 L, Gran % 51.9, Lymphocytes % 26.1, Monocytes % 13.1 H, Eosinophils % 8.0 H, Basophils % 0.9, Absolute Granulocytes 2.1, Absolute Lymphocytes 1.1 L, Absolute Monocytes 0.5, Absolute Eosinophils 0.3, Absolute Basophils 0 01/05/18 0905: Anion Gap 12, Estimated GFR 39 L, Glucose 114 H, Uric Acid 5.1, Calcium 9.0, Phosphorus 4.5, Magnesium 1.8, Total Bilirubin 0.8, AST 25, ALT 30, Albumin 3.5, TSH 1.730, Free T4 1.59 01/05/18 0645: Urine Color YEL, Urine Clarity CLEAR, Urine pH 6.0, Ur Specific [place] 1.020, Urine Protein TRACE H, Urine Ketones TRACE H, Urine Nitrite NEG, Urine Bilirubin NEG, Urine Urobilinogen 0.2, Ur Leukocyte Esterase NEG, Ur Microscopic SEDIMENT EXAMINED, Urine RBC RARE, Urine WBC 1-3 H, Urine Mucus FEW, Urine Hemoglobin TRACE-INTACT H, Urine Glucose 100 H 01/05/18 0645: Urine Osmolality 331, Ur Random Creatinine 70.5, Ur Random Sodium 53, Ur Random Potassium 32.5, Fraction Sodium Excret 1.0 01/05/18 0410: Serum Osmolality 263 L, Troponin I 0.02 01/05/18 0410: Anion Gap 10, Estimated GFR 39 L, BUN/Creatinine Ratio 9.4, Phosphorus 4.7 H, Magnesium 1.9, Triglycerides 32, Cholesterol 130, LDL Cholesterol, Calc 40 L, HDL Cholesterol 84 H, Cholesterol/HDL Ratio 2, CBC w Diff NO MAN DIFF REQ, RBC 3.06 L, MCV 96.1 H, MCH 33.2 H, MCHC 34.5, RDW 13.5, MPV 6.8 L, Gran % 63.0, Lymphocytes % 21.9, Monocytes % 12.7 H, Eosinophils % 1.7, Basophils % 0.7, Absolute Granulocytes 2.8, Absolute Lymphocytes 1.0 L, Absolute Monocytes 0.6, Absolute Eosinophils 0.1, Absolute Basophils 0 01/04/182139: Serum Osmolality 260 L, Troponin I 0.02 01/04/182139: Anion Gap 11, Estimated GFR 36 L, Glucose 153 H, Calcium 8.9, Phosphorus 3.9, Magnesium 2.0, Total Bilirubin 0.6, AST 27, ALT 32, Albumin 3.4 L, CBC w Diff NO MAN DIFF REQ, RBC 3.30 L, MCV 97.1 H, MCH 32.0 H, MCHC 33.0, RDW 13.5, MPV 6.3 L, Gran % 74.5, Lymphocytes % 15.0 L, Monocytes % 9.7 H, Eosinophils % 0.3, Basophils % 0.5, Absolute Granulocytes 3.8, Absolute Lymphocytes 0.8 L, Absolute Monocytes 0.5, Absolute Eosinophils 0, Absolute Basophils 0 01/04/181957: Serum Osmolality Cancelled 01/04/18 153: Anion Gap 15, Estimated GFR 29 L, BUN/Creatinine Ratio 7.7, Glucose 98, Hemoglobin A1c 5.2, Lactic Acid 2.0, Calcium 9.9, Magnesium 1.1 L, Total Bilirubin 0.8, AST 29, ALT 29, Alkaline Phosphatase 96, Creatine Kinase 183 H, Troponin I < 0.01, Total Protein 7.5, Albumin 4.1, Globulin 3.4, Albumin/ Globulin Ratio 1.2, Vitamin B12 926, Folate > 20.0 H, CBC w Diff NO MAN DIFF REQ, RBC 3.53 L, MCV 96.8 H, MCH 33.0 H, MCHC 34.1, RDW 13.4, MPV 6.5 L, Gran % 81.3 H, Lymphocytes % 9.5 L, Monocytes % 8.7, Eosinophils % 0.2, Basophils % 0.3, Absolute Granulocytes 6.5, Absolute Lymphocytes 0.8 L, Absolute Monocytes 0.7 H, Absolute Eosinophils 0, Absolute Basophils 0 01/04/18 153: Creatine Kinase Cancelled Microbiology 01/05 2140 UPPER RESP: Surveillance Culture - COMP 01/05 2140 GI: Surveillance Culture - COMP CT Scan Findings: EXAMINATION: CT HEAD WITHOUT CONTRAST CLINICAL INFORMATION: Follow-up abnormal exam. Follow-up subarachnoid hemorrhage. COMPARISON: January 04, 2018. TECHNIQUE: Contiguous helical images of the brain were obtained without IV contrast. Multiplanar reconstructions were performed. DLP: 681 mGy-cm. FINDINGS: There is an equivocal decrease in subarachnoid blood overlying the right vertex. No new hemorrhage is identified. The lateral, third, fourth ventricles are mildly prominent, though stable, age-appropriate and concordant with the appearance of the sulci. There is likely a tiny focus of blood within the right occipital horn demonstrated on image 36/72. There is no evidence for acute intraparenchymal hemorrhage or infarct. There is neither mass nor mass effect. There is no shift of midline structures. There is patchy opacification within the ethmoid sinuses. The paranasal sinuses and mastoid air cells are otherwise clear. There are no osseous lesions. IMPRESSION: Equivocal decrease in amount of subarachnoid blood overlying the right vertex. No new blood is identified. Stable age-appropriate cerebral atrophy. ECHO Findings: FINDINGS Left Ventricle Normal global left ventricular size, wall thickness, systolic function with no obvious regional wall motion abnormalities. Left ventricular ejection fraction is estimated at >65 %. Abnormal relaxation filling pattern of the left ventricle for age (stage 1 diastolic dysfunction). Right Ventricle The right ventricle is normal in size and function. Right Atrium The right atrium is normal in size. Left Atrium The left atrium is normal in size. The interatrial septum is intact. Mitral Valve Mild thickening/calcification of the mitral valve leaflets. Mild mitral annular calcification. Trace to mild mitral regurgitation. Aortic Valve Focal thickening of the aortic valve cusps. No aortic stenosis. No aortic regurgitation. Tricuspid Valve The tricuspid valve is normal in structure and function. There is trace tricuspid regurgitation. Pulmonary artery systolic pressure is normal. Pulmonic Valve Pulmonic valve not well visualized, grossly normal. Trace pulmonic regurgitation. Pericardium Normal pericardium without effusion. No pleural effusion. Great Vessels Normal aortic root dimension. The aortic arch and great vessels are not visualized. CONCLUSIONS Normal global left ventricular size, wall thickness, systolic function with no obvious regional wall motion abnormalities. Left ventricular ejection fraction is estimated at >65 %. Abnormal relaxation filling pattern of the left ventricle for age (stage 1 diastolic dysfunction). The left atrium is normal in size. Mild thickening/calcification of the mitral valve leaflets. Mild mitral annular calcification. Trace to mild mitral regurgitation. Focal thickening of the aortic valve cusps. No aortic stenosis. Pulmonary artery systolic pressure is normal. Impression/Plan Impression/Problem List Impression: This is 82-year-old male with past medical history of hypertension, hyperlipidemia,CKD stage 3, Ch. Hyponatremia, alcohol dependence, is here after sustaining a fall and loss of consciousness. 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 -Hypomagnesemia -JASPREET on CKD stage 3 -Alcohol dependence -pulmonary nodules measuring up to 0.6 cm Plan: -Start 20 mg by mouth Lasix, sodium chloride restriction as recommended by engine repairer production. -change NIH to be every 4 hr -Echo ejection fraction 65, stage I diastolic dysfunction. -repeat head CAT scan did not showed any acute changes. -Cont dose of atorvastatin to 40 mg -Avoid delirium triggered giving the patient age. -Cont current pain meds. -Continue CIWA monitoring -Cont hold any blood thinners or NSAIDs -PT recommend short-term rehabilitation. -Regular diet -Patient will need further evaluation of his unintentional weight loss with his primary care doctor after discharge. -he will need to follow-up for the pulmonary nodule after discharge. Problem List: 1. HLD (hyperlipidemia) 2. Hypertension 3. Carotid stenosis Pain Ratin Tomorrow's Labs & Rationales: cbc bep Plan DVT/Prophylaxis: mechanical
--- NOTE | 2018-01-06 10:29 | Cons- Cardiology ---
General Information and HPI Consulting Request Date of Consult: 01/06/18 Requested By: Danis Smith MD Reason for Consult: Possible syncope Source of Information: patient, old records History of Present Illness: This is a pleasant 82-year-old male with a past medical history of hypertension, hyperlipidemia, coronary artery disease with remote PCI, renal insufficiency, hyponatremia, and alcohol dependence (4-5 beers/day) who presents to [facility] following a fall of unclear etiology. The patient does not remember the fall well but tells me that prior to the fall he was in his usual state of health and has not been experiencing any chest pain, dyspnea, palpitations, or lightheadedness. He was climbing the stairs at the time of the fall and on CT scan was found to have subarachnoid hemorrhage. Denies any fever, cough, nausea , or diarrhea. On my interview with him today he was resting comfortably in a soft neck collar without active complaint Allergies/Medications Allergies: Coded Allergies: No Known Allergies (06/30/17) Home Med List: Amlodipine Besylate 5 MG TABLET 1 TAB PO DAILY HTN (Reported) Furosemide 20 MG TABLET 1 TAB PO DAILY HTN (Reported) Metoprolol Succ XL (Toprol XL) 25 MG TAB 1 TAB PO DAILY HTN (Reported) Omeprazole 20 MG CAPSULE.DR 1 CAP PO DAILY GERD (Reported) Pravastatin Sodium (Pravachol) 40 MG TABLET 1 TAB PO DAILY CHOLESTEROL ( Reported) Current Medications: Current Medications Sig/Keven Start time Last Medication Dose Route Stop Time Status Admin Acetaminophen 1,000 MG Q8 01/06 1400 AC IV Acetaminophen 500 MG Q8P PRN 01/06 0845 AC PO Acetaminophen 500 MG Q6 01/05 1800 DC 01/06 PO 0558 Acetaminophen 1,000 MG Q8 PRN 01/05 1324 AC IV 01/06 1359 Acetaminophen 650 MG Q6P PRN 01/04 2145 DC PO Acetaminophen 1,000 MG Q6P PRN 01/04 2145 DC 01/05 IV 0957 Amlodipine Besylate 5 MG DAILY 01/05 1000 AC 01/05 PO 1002 Atorvastatin Calcium 20 MG 1700 01/05 1700 DC PO Atorvastatin Calcium 40 MG 1700 01/05 1700 AC 01/05 PO 1619 Folic Acid 1 MG DAILY 01/05 1000 AC 01/05 PO 1003 Hydromorphone HCl 2 MG Q8P PRN 01/05 1545 DC 01/06 PO 0119 Hydromorphone HCl 2 MG Q12P PRN 01/05 1330 DC PO Hydromorphone HCl 2 MG Q4P PRN 01/04 2330 DC 01/05 PO 0757 Lidocaine 1 PAT Q24H 01/04 2145 AC 01/05 EXT 2101 Magnesium Oxide 400 MG BID 01/06 1000 AC PO 01/07 1001 Metoprolol Succinate 25 MG DAILY 01/05 1000 AC 01/05 PO 1003 Multivitamins 1 TAB DAILY 01/05 1000 AC 01/05 PO 1002 Omeprazole 20 MG DAILY 01/05 1000 AC 01/05 PO 1002 Oxycodone/ 1 TAB Q12P PRN 01/06 0845 AC Acetaminophen PO Polyethylene Glycol 17 GM DAILY PRN 01/06 0845 AC PO Senna/Docusate Sodium 1 TAB BID PRN 01/06 0845 AC PO Thiamine HCl 100 MG DAILY 01/05 1000 AC 01/05 PO 01/07 1001 1002 Review of Systems Review of Systems: Review of systems as per HPI. The remainder of a 10 point review of systems was reviewed and was otherwise negative. 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 Home Services at Home: None Primary Language: Liberian Smoking Status: Former Smoker (1.5 pack/day, quit 20 yrs ago) ETOH Use: daily 4 beers, last drink last night Illicit Drug Use: denies illicit drug use Living Will? yes Power of Customer Experience Intern/HCP? daughters (both) per patient Functional Ability ADLs Independent: dressing, eating, toileting, bathing. Ambulation: independent IADLs Independent: shopping, housework, finances, food prep, telephone, transportation , medication admin. 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 Exam & Diagnostic Data Vital Signs and I&O Vital Signs Date Time Temp Pulse Resp B/P B/P Pulse O2 O2 Flow FiO2 Mean Ox Delivery Rate 01/06 0800 98.1 74 18 156/70 01/06 0800 95 Room Air 01/06 0700 98.1 74 18 156/70 95 Room Air 01/06 0600 82 18 166/75 01/06 0400 98.0 78 20 140/84 01/06 0400 98 Room Air 01/06 0200 73 14 146/69 01/06 0000 97.9 68 16 144/80 01/06 0000 96 Room Air 01/06 0000 97.9 68 18 144/80 96 Room Air 01/05 2200 98.2 68 12 156/65 01/05 2000 98.2 60 19 140/76 01/05 1800 68 20 149/68 01/05 1600 98.2 68 17 132/74 01/05 1600 98.2 68 17 132/71 95 Room Air 01/05 1400 98.8 66 12 142/67 01/05 1200 98.8 70 26 148/68 01/05 1200 96 Room Air Intake & Output 01/06 1600 01/06 0800 01/06 0000 01/05 1600 01/05 0800 01/05 0000 Intake Total 160 240 195 833 690 Output Total 550 550 480 150 300 Balance -390 -310 -285 683 390 Intake, IV 75 753 450 Intake, Oral 160 240 120 80 240 Number 0 0 0 Bowel Movements Output, Urine 550 550 480 150 300 Patient 141 lb 143 lb 146 lb Weight Weight Bed scale Bed scale Measurement Method Physical Exam: General: no apparent distress. Alert. Neck immobilized. Eyes: No obvious scleral icterus. HEENT: No jugular venous distention or abnormal jugular venous pulsations. Cardiovascular: Normal intensity S1/S2. PMI not grossly displaced. Respiratory: Lungs clear to auscultation bilaterally. Abdomen: Soft, nontender with no guarding or rebound tenderness. Musculoskeletal: No clubbing or cyanosis noted Skin: No obvious rashes or ulcerations. Neurologic: No gross focal deficits noted. Lymph: No gross lymphadenopathy. Labs/Enrrique Results: Laboratory Tests 01/06 01/05 0400 0905 Chemistry Sodium (137 - 145 mmol/L) 125 L 127 L Potassium (3.5 - 5.1 mmol/L) 4.1 4.6 Chloride (98 - 107 mmol/L) 93 L 91 L Carbon Dioxide (22 - 30 mmol/L) 24 24 Anion Gap (5 - 16) 8 12 BUN (9 - 20 mg/dL) 16 15 Creatinine (0.7 - 1.2 mg/dL) 1.4 H 1.7 H Estimated GFR (>60 ml/min) 49 L 39 L Glucose (65 - 99 mg/dL) 103 H 114 H Uric Acid (3.5 - 8.5 mg/dL) 5.1 Calcium (8.4 - 10.2 mg/dL) 8.9 9.0 Phosphorus (2.5 - 4.5 mg/dL) 3.8 4.5 Magnesium (1.6 - 2.3 mg/dL) 1.4 L 1.8 Total Bilirubin (0.2 - 1.3 mg/dL) 0.6 0.8 AST (17 - 59 U/L) 20 25 ALT (21 - 72 U/L) 24 30 Albumin (3.5 - 5.0 g/dL) 3.0 L 3.5 TSH (0.270 - 4.200 uIU/mL) 1.730 Free T4 (0.85 - 1.93 ng/dL) 1.59 Hematology CBC w Diff NO MAN DIFF REQ WBC (4.8 - 10.8 /CUMM) 4.1 L RBC (4.70 - 6.10 /CUMM) 3.10 L Hgb (14.0 - 18.0 G/DL) 10.3 L Hct (42 - 52 %) 30.2 L MCV (80.0 - 94.0 FL) 97.3 H MCH (27.0 - 31.0 PG) 33.1 H MCHC (33.0 - 37.0 G/DL) 34.0 RDW (11.5 - 14.5 %) 13.4 Plt Count (130 - 400 /CUMM) 237 MPV (7.4 - 10.4 FL) 6.7 L Gran % (42.2 - 75.2 %) 51.9 Lymphocytes % (20.5 - 51.1 %) 26.1 Monocytes % (1.7 - 9.3 %) 13.1 H Eosinophils % (0 - 5 %) 8.0 H Basophils % (0.0 - 2.0 %) 0.9 Absolute Granulocytes (1.4 - 6.5 /CUMM) 2.1 Absolute Lymphocytes (1.2 - 3.4 /CUMM) 1.1 L Absolute Monocytes (0.10 - 0.60 /CUMM) 0.5 Absolute Eosinophils (0.0 - 0.7 /CUMM) 0.3 Absolute Basophils (0.0 - 0.2 /CUMM) 0 01/05 01/05 01/05 0645 0645 0410 Chemistry Serum Osmolality (285 - 295 MOSM/KG) 263 L Troponin I (<0.11 ng/ml) 0.02 Urines Urine Color (YEL,AMB,STR) YEL Urine Clarity (CLEAR) CLEAR Urine pH (5.0 - 8.0) 6.0 Ur Specific [place] (1.001 - 1.035) 1.020 Urine Protein (NEG,<30 MG/DL) TRACE H Urine Ketones (NEG) TRACE H Urine Nitrite (NEG) NEG Urine Bilirubin (NEG) NEG Urine Urobilinogen (0.1 - 1.0 EU/dl) 0.2 Ur Leukocyte Esterase (NEG) NEG Ur Microscopic SEDIMENT EXAMINED Urine RBC (0 - 5 /HPF) RARE Urine WBC (0 - 2 /HPF) 1-3 H Urine Mucus (FEW,NONE) FEW Urine Hemoglobin (NEG) TRACE-INTACT H Urine Osmolality (300 - 1000 MOSM/KG) 331 Ur Random Creatinine (mg/dL) 70.5 Ur Random Sodium (30 - 90 mmol/L) 53 Ur Random Potassium (mmol/L) 32.5 Fraction Sodium Excret (<1% %) 1.0 Urine Glucose (N MG/DL) 100 H 01/05 01/04 0410 2140 Chemistry Sodium (137 - 145 mmol/L) 124 L Potassium (3.5 - 5.1 mmol/L) 4.5 Chloride (98 - 107 mmol/L) 91 L Carbon Dioxide (22 - 30 mmol/L) 23 Anion Gap (5 - 16) 10 BUN (9 - 20 mg/dL) 16 Creatinine (0.7 - 1.2 mg/dL) 1.7 H Estimated GFR (>60 ml/min) 39 L BUN/Creatinine Ratio (7 - 25 %) 9.4 Serum Osmolality (285 - 295 MOSM/KG) 260 L Phosphorus (2.5 - 4.5 mg/dL) 4.7 H Magnesium (1.6 - 2.3 mg/dL) 1.9 Troponin I (<0.11 ng/ml) 0.02 Triglycerides (<150 mg/dL) 32 Cholesterol (< 200 MG/DL) 130 LDL Cholesterol, Calc (65 - 129 mg/dL) 40 L HDL Cholesterol (40 - 60 mg/dL) 84 H Cholesterol/HDL Ratio (0.00 - 4.88 %) 2 Hematology CBC w Diff NO MAN DIFF REQ WBC (4.8 - 10.8 /CUMM) 4.4 L RBC (4.70 - 6.10 /CUMM) 3.06 L Hgb (14.0 - 18.0 G/DL) 10.1 L Hct (42 - 52 %) 29.4 L MCV (80.0 - 94.0 FL) 96.1 H MCH (27.0 - 31.0 PG) 33.2 H MCHC (33.0 - 37.0 G/DL) 34.5 RDW (11.5 - 14.5 %) 13.5 Plt Count (130 - 400 /CUMM) 243 MPV (7.4 - 10.4 FL) 6.8 L Gran % (42.2 - 75.2 %) 63.0 Lymphocytes % (20.5 - 51.1 %) 21.9 Monocytes % (1.7 - 9.3 %) 12.7 H Eosinophils % (0 - 5 %) 1.7 Basophils % (0.0 - 2.0 %) 0.7 Absolute Granulocytes (1.4 - 6.5 /CUMM) 2.8 Absolute Lymphocytes (1.2 - 3.4 /CUMM) 1.0 L Absolute Monocytes (0.10 - 0.60 /CUMM) 0.6 Absolute Eosinophils (0.0 - 0.7 /CUMM) 0.1 Absolute Basophils (0.0 - 0.2 /CUMM) 0 01/04 Chemistry Sodium (137 - 145 mmol/L) 121 L Potassium (3.5 - 5.1 mmol/L) 4.3 Chloride (98 - 107 mmol/L) 89 L Carbon Dioxide (22 - 30 mmol/L) 21 L Anion Gap (5 - 16) 11 BUN (9 - 20 mg/dL) 16 Creatinine (0.7 - 1.2 mg/dL) 1.8 H Estimated GFR (>60 ml/min) 36 L Glucose (65 - 99 mg/dL) 153 H Serum Osmolality Cancelled Calcium (8.4 - 10.2 mg/dL) 8.9 Phosphorus (2.5 - 4.5 mg/dL) 3.9 Magnesium (1.6 - 2.3 mg/dL) 2.0 Total Bilirubin (0.2 - 1.3 mg/dL) 0.6 AST (17 - 59 U/L) 27 ALT (21 - 72 U/L) 32 Albumin (3.5 - 5.0 g/dL) 3.4 L Hematology CBC w Diff NO MAN DIFF REQ WBC (4.8 - 10.8 /CUMM) 5.1 RBC (4.70 - 6.10 /CUMM) 3.30 L Hgb (14.0 - 18.0 G/DL) 10.6 L Hct (42 - 52 %) 32.0 L MCV (80.0 - 94.0 FL) 97.1 H MCH (27.0 - 31.0 PG) 32.0 H MCHC (33.0 - 37.0 G/DL) 33.0 RDW (11.5 - 14.5 %) 13.5 Plt Count (130 - 400 /CUMM) 255 MPV (7.4 - 10.4 FL) 6.3 L Gran % (42.2 - 75.2 %) 74.5 Lymphocytes % (20.5 - 51.1 %) 15.0 L Monocytes % (1.7 - 9.3 %) 9.7 H Eosinophils % (0 - 5 %) 0.3 Basophils % (0.0 - 2.0 %) 0.5 Absolute Granulocytes (1.4 - 6.5 /CUMM) 3.8 Absolute Lymphocytes (1.2 - 3.4 /CUMM) 0.8 L Absolute Monocytes (0.10 - 0.60 /CUMM) 0.5 Absolute Eosinophils (0.0 - 0.7 /CUMM) 0 Absolute Basophils (0.0 - 0.2 /CUMM) 0 01/04 01/04 1538 1531 Chemistry Sodium (137 - 145 mmol/L) 125 L Potassium (3.5 - 5.1 mmol/L) 5.5 H Chloride (98 - 107 mmol/L) 89 L Carbon Dioxide (22 - 30 mmol/L) 21 L Anion Gap (5 - 16) 15 BUN (9 - 20 mg/dL) 17 Creatinine (0.7 - 1.2 mg/dL) 2.2 H Estimated GFR (>60 ml/min) 29 L BUN/Creatinine Ratio (7 - 25 %) 7.7 Glucose (65 - 99 mg/dL) 98 Hemoglobin A1c (4.2 - 5.8 %) 5.2 Lactic Acid (0.7 - 2.1 mmol/L) 2.0 Calcium (8.4 - 10.2 mg/dL) 9.9 Magnesium (1.6 - 2.3 mg/dL) 1.1 L Total Bilirubin (0.2 - 1.3 mg/dL) 0.8 AST (17 - 59 U/L) 29 ALT (21 - 72 U/L) 29 Alkaline Phosphatase (< 127 U/L) 96 Creatine Kinase (55 - 170 U/L) 183 H Cancelled Troponin I (<0.11 ng/ml) < 0.01 Total Protein (6.3 - 8.2 g/dL) 7.5 Albumin (3.5 - 5.0 g/dL) 4.1 Globulin (1.9 - 4.2 gm/dL) 3.4 Albumin/Globulin Ratio (1.1 - 2.2 %) 1.2 Vitamin B12 (239 - 931 pg/mL) 926 Folate (2.76 - 20.0 ng/mL) > 20.0 H Hematology CBC w Diff NO MAN DIFF REQ WBC (4.8 - 10.8 /CUMM) 8.0 RBC (4.70 - 6.10 /CUMM) 3.53 L Hgb (14.0 - 18.0 G/DL) 11.7 L Hct (42 - 52 %) 34.2 L MCV (80.0 - 94.0 FL) 96.8 H MCH (27.0 - 31.0 PG) 33.0 H MCHC (33.0 - 37.0 G/DL) 34.1 RDW (11.5 - 14.5 %) 13.4 Plt Count (130 - 400 /CUMM) 292 MPV (7.4 - 10.4 FL) 6.5 L Gran % (42.2 - 75.2 %) 81.3 H Lymphocytes % (20.5 - 51.1 %) 9.5 L Monocytes % (1.7 - 9.3 %) 8.7 Eosinophils % (0 - 5 %) 0.2 Basophils % (0.0 - 2.0 %) 0.3 Absolute Granulocytes (1.4 - 6.5 /CUMM) 6.5 Absolute Lymphocytes (1.2 - 3.4 /CUMM) 0.8 L Absolute Monocytes (0.10 - 0.60 /CUMM) 0.7 H Absolute Eosinophils (0.0 - 0.7 /CUMM) 0 Absolute Basophils (0.0 - 0.2 /CUMM) 0 Diagnostic Data EKG Results Tracing was personally reviewed and shows sinus rhythm at 72 bpm Other Results Telemetry tracings were personally reviewed shows sinus rhythm with some artifact Echocardiogram Normal global left ventricular size, wall thickness, systolic function with no obvious regional wall motion abnormalities. Left ventricular ejection fraction is estimated at >65 %. Abnormal relaxation filling pattern of the left ventricle for age (stage 1 diastolic dysfunction). The left atrium is normal in size. Mild thickening/calcification of the mitral valve leaflets. Mild mitral annular calcification. Trace to mild mitral regurgitation. Focal thickening of the aortic valve cusps. No aortic stenosis. Pulmonary artery systolic pressure is normal. Assessment/Plan Assessment/Plan 1. Status post fall of unclear etiology with subarachnoid hemorrhage 2. Acute on chronic renal insufficiency 3. Acute on chronic hyponatremia 4. History of coronary artery disease with remote PCI 5. History of hypertension/hyperlipidemia 6. History of alcohol dependence Patient's fall may have been mechanical but given that he does not remember the episode well syncope is possible; echocardiogram shows normal EF with no obvious major valvular pathology and telemetry thus far show sinus rhythm with no rhythms that would precipitate a syncopal event. Despite his history of coronary artery disease would not initiate aspirin therapy at this time given the subarachnoid hemorrhage. Per neurosurgical evaluation acute surgical intervention is not currently planned. His outpatient antihypertensive regimen and statin can be continued. Ilan Springer MD [facility] Consult Acknowledgment - Thank you for your consult request.
--- NOTE | 2018-01-06 10:30 | Cons- Orthopedic ---
General Information and HPI Consulting Request Date of Consult: 01/06/18 Requested By: Danis Smith MD History of Present Illness: 82 Y/O MALE WITH LEFT SHOULDER AND WRIST PAIN S/P FALL. WENT TO ER X-RAYS SHOW NO FRACTURE OF WRIST AND SHOULDER. STATES PAIN HAS DECREASED SIGNIFICANTLY OVER THE PAST 12 HOURS. HE STATES HAD A NERVE TRANSPOSITION OF LEFT ELBOW YEARS AGO WHICH HAS LEFT HIM WITH SOME DEFICITS OF LEFT WRIST/HAND. RATES HIS SHOULDER AND WRIST PAIN A 1-2. FEELS BETTER AT REST. Allergies/Medications Allergies: Coded Allergies: No Known Allergies (06/30/17) Home Med List: Amlodipine Besylate 5 MG TABLET 1 TAB PO DAILY HTN (Reported) Furosemide 20 MG TABLET 1 TAB PO DAILY HTN (Reported) Metoprolol Succ XL (Toprol XL) 25 MG TAB 1 TAB PO DAILY HTN (Reported) Omeprazole 20 MG CAPSULE.DR 1 CAP PO DAILY GERD (Reported) Pravastatin Sodium (Pravachol) 40 MG TABLET 1 TAB PO DAILY CHOLESTEROL ( Reported) Past History Medical History Blood Transfusion Hx: No Neurological: NONE EENT: NONE Cardiovascular: hypertension, hyperlipidemia Respiratory: NONE Gastrointestinal: NONE Hepatic: NONE Renal: NONE Musculoskeletal: C-SPINE DISK FUSION Psychiatric: NONE Endocrine: NONE, HYPONATREMIA Blood Disorders: NONE Cancer(s): 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 Home Services at Home: None Primary Language: Kinyarwanda Smoking Status: Former Smoker (1.5 pack/day, quit 20 yrs ago) ETOH Use: daily 4 beers, last drink last night Illicit Drug Use: denies illicit drug use Living Will? yes Power of Appliance Tester/HCP? daughters (both) per patient Functional Ability ADLs Independent: dressing, eating, toileting, bathing. Ambulation: independent IADLs Independent: shopping, housework, finances, food prep, telephone, transportation , medication admin. 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 Exam & Diagnostic Data Vital Signs and I&O Vital Signs Date Time Temp Pulse Resp B/P B/P Pulse O2 O2 Flow FiO2 Mean Ox Delivery Rate 01/06 0800 98.1 74 18 156/70 01/06 0800 95 Room Air 01/06 0700 98.1 74 18 156/70 95 Room Air 01/06 0600 82 18 166/75 01/06 0400 98.0 78 20 140/84 01/06 0400 98 Room Air 01/06 0200 73 14 146/69 01/06 0000 97.9 68 16 144/80 01/06 0000 96 Room Air 01/06 0000 97.9 68 18 144/80 96 Room Air 01/05 2200 98.2 68 12 156/65 01/05 2000 98.2 60 19 140/76 01/05 1800 68 20 149/68 01/05 1600 98.2 68 17 132/74 01/05 1600 98.2 68 17 132/71 95 Room Air 01/05 1400 98.8 66 12 142/67 01/05 1200 98.8 70 26 148/68 01/05 1200 96 Room Air Intake & Output 01/06 1600 01/06 0800 01/06 0000 01/05 1600 01/05 0800 01/05 0000 Intake Total 160 240 195 833 690 Output Total 550 550 480 150 300 Balance -390 -310 -285 683 390 Intake, IV 75 753 450 Intake, Oral 160 240 120 80 240 Number 0 0 0 Bowel Movements Output, Urine 550 550 480 150 300 Patient 141 lb 143 lb 146 lb Weight Weight Bed scale Bed scale Measurement Method Physical Exam: 170 degrees of FF and 160 degress of abduction with AROM in left shoulder. non- tender left shoulder. skin intact. 5/5 strength left shoulder. no warmth or erythema. left wrist non-tender. 50 degrees of dorsi flexion and full volar flexion. 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 x-rays of left wrist negative for fracture or dislocation. x-rays of left shoulder negative for fracture/ dislocation. Assessment/Plan Assessment/Plan 1. Left wrist sprain 2. Left shoulder strain - left wrist brace for 2 weeks which patient has already then d/c - f/u with ortho PRN Consult Acknowledgment - Thank you for your consult request.
--- NOTE | 2018-01-06 11:50 | PN- Nephrology ---
Assessment/Plan Nephrology Assessment: 1. Hyponatremia likely secondary to SIADH with possibly an element of beer potomania and initial volume contraction 2. CKD/JASPREET - resolving. 3. Head trauma ---> small subarachnoid hemorrhage 4. Spinous process fracture, soft tissue injury to left shoulder and a possible scaphoid fracture of the left wrist. Suggestion: 1. Fluid limit in yesterday's note should have read 1000 mL per day 2. Begin sodium chloride tablets 1000 mg by mouth 3 times a day 3. Resume furosemide 20 mg by mouth daily 4. Repeat chemistries tomorrow Subjective Subjective: Other than pain in left shoulder and wrist, patient has no specific complaints today and in general is feeling well. Serum sodium had risen to 127 yesterday and is now back down slightly to 125. Serum creatinine down to 1.4. Uric acid level 5.1 (unhelpful). Objective Vital Signs and I&Os Vital Signs Date Time Temp Pulse Resp B/P B/P Pulse O2 O2 Flow FiO2 Mean Ox Delivery Rate 01/06 1138 77 150/80 01/06 1030 77 150/80 01/06 1000 98.1 84 16 147/71 01/06 0800 98.1 74 18 156/70 01/06 0800 95 Room Air 01/06 0700 98.1 74 18 156/70 95 Room Air 01/06 0600 82 18 166/75 01/06 0400 98.0 78 20 140/84 01/06 0400 98 Room Air 01/06 0200 73 14 146/69 01/06 0000 97.9 68 16 144/80 01/06 0000 96 Room Air 01/06 0000 97.9 68 18 144/80 96 Room Air 01/05 2200 98.2 68 12 156/65 01/05 2000 98.2 60 19 140/76 01/05 1800 68 20 149/68 01/05 1600 98.2 68 17 132/74 01/05 1600 98.2 68 17 132/71 95 Room Air 01/05 1400 98.8 66 12 142/67 01/05 1200 98.8 70 26 148/68 01/05 1200 96 Room Air Intake & Output 01/06 1600 01/06 0400 01/05 1600 01/05 0400 01/04 1600 01/04 0400 Intake Total 760 206 6469 690 Output Total 550 550 630 300 Balance -390 -310 398 390 Intake, IV 828 450 Intake, Oral 160 240 200 240 Number 0 0 Bowel Movements Output, Urine 550 550 630 300 Patient 141 lb 146 lb 130 lb Weight Weight Bed scale Bed scale Reported by Patient Measurement Method Physical Exam: General: Well-developed, elderly white male, awake, alert and in no acute distress Skin: No rash or jaundice HEENT: Conjunctivae pink, sclerae anicteric, mucous membranes moist Neck: Neck not examined Chest: Clear to P&A Heart: Regular rate and rhythm without S3 or rub Abdomen: Soft and nontender without palpable masses or organomegaly Extremities: Without cyanosis or edema; left wrist splinted Neuro: Awake and alert, cognitively intact, speech within normal limits, no focal findings, no asterixis or myoclonus Results Pertinent Lab Results: Laboratory Tests 01/06 01/05 0400 0905 Chemistry Sodium (137 - 145 mmol/L) 125 L 127 L Potassium (3.5 - 5.1 mmol/L) 4.1 4.6 Chloride (98 - 107 mmol/L) 93 L 91 L Carbon Dioxide (22 - 30 mmol/L) 24 24 Anion Gap (5 - 16) 8 12 BUN (9 - 20 mg/dL) 16 15 Creatinine (0.7 - 1.2 mg/dL) 1.4 H 1.7 H Estimated GFR (>60 ml/min) 49 L 39 L Glucose (65 - 99 mg/dL) 103 H 114 H Uric Acid (3.5 - 8.5 mg/dL) 5.1 Calcium (8.4 - 10.2 mg/dL) 8.9 9.0 Phosphorus (2.5 - 4.5 mg/dL) 3.8 4.5 Magnesium (1.6 - 2.3 mg/dL) 1.4 L 1.8 Total Bilirubin (0.2 - 1.3 mg/dL) 0.6 0.8 AST (17 - 59 U/L) 20 25 ALT (21 - 72 U/L) 24 30 Albumin (3.5 - 5.0 g/dL) 3.0 L 3.5 TSH (0.270 - 4.200 uIU/mL) 1.730 Free T4 (0.85 - 1.93 ng/dL) 1.59 Hematology CBC w Diff NO MAN DIFF REQ WBC (4.8 - 10.8 /CUMM) 4.1 L RBC (4.70 - 6.10 /CUMM) 3.10 L Hgb (14.0 - 18.0 G/DL) 10.3 L Hct (42 - 52 %) 30.2 L MCV (80.0 - 94.0 FL) 97.3 H MCH (27.0 - 31.0 PG) 33.1 H MCHC (33.0 - 37.0 G/DL) 34.0 RDW (11.5 - 14.5 %) 13.4 Plt Count (130 - 400 /CUMM) 237 MPV (7.4 - 10.4 FL) 6.7 L Gran % (42.2 - 75.2 %) 51.9 Lymphocytes % (20.5 - 51.1 %) 26.1 Monocytes % (1.7 - 9.3 %) 13.1 H Eosinophils % (0 - 5 %) 8.0 H Basophils % (0.0 - 2.0 %) 0.9 Absolute Granulocytes (1.4 - 6.5 /CUMM) 2.1 Absolute Lymphocytes (1.2 - 3.4 /CUMM) 1.1 L Absolute Monocytes (0.10 - 0.60 /CUMM) 0.5 Absolute Eosinophils (0.0 - 0.7 /CUMM) 0.3 Absolute Basophils (0.0 - 0.2 /CUMM) 0 01/05 01/05 01/05 0645 0645 0410 Chemistry Serum Osmolality (285 - 295 MOSM/KG) 263 L Troponin I (<0.11 ng/ml) 0.02 Urines Urine Color (YEL,AMB,STR) YEL Urine Clarity (CLEAR) CLEAR Urine pH (5.0 - 8.0) 6.0 Ur Specific Warren (1.001 - 1.035) 1.020 Urine Protein (NEG,<30 MG/DL) TRACE H Urine Ketones (NEG) TRACE H Urine Nitrite (NEG) NEG Urine Bilirubin (NEG) NEG Urine Urobilinogen (0.1 - 1.0 EU/dl) 0.2 Ur Leukocyte Esterase (NEG) NEG Ur Microscopic SEDIMENT EXAMINED Urine RBC (0 - 5 /HPF) RARE Urine WBC (0 - 2 /HPF) 1-3 H Urine Mucus (FEW,NONE) FEW Urine Hemoglobin (NEG) TRACE-INTACT H Urine Osmolality (300 - 1000 MOSM/KG) 331 Ur Random Creatinine (mg/dL) 70.5 Ur Random Sodium (30 - 90 mmol/L) 53 Ur Random Potassium (mmol/L) 32.5 Fraction Sodium Excret (<1% %) 1.0 Urine Glucose (N MG/DL) 100 H 01/05 01/04 0410 2140 Chemistry Sodium (137 - 145 mmol/L) 124 L Potassium (3.5 - 5.1 mmol/L) 4.5 Chloride (98 - 107 mmol/L) 91 L Carbon Dioxide (22 - 30 mmol/L) 23 Anion Gap (5 - 16) 10 BUN (9 - 20 mg/dL) 16 Creatinine (0.7 - 1.2 mg/dL) 1.7 H Estimated GFR (>60 ml/min) 39 L BUN/Creatinine Ratio (7 - 25 %) 9.4 Serum Osmolality (285 - 295 MOSM/KG) 260 L Phosphorus (2.5 - 4.5 mg/dL) 4.7 H Magnesium (1.6 - 2.3 mg/dL) 1.9 Troponin I (<0.11 ng/ml) 0.02 Triglycerides (<150 mg/dL) 32 Cholesterol (< 200 MG/DL) 130 LDL Cholesterol, Calc (65 - 129 mg/dL) 40 L HDL Cholesterol (40 - 60 mg/dL) 84 H Cholesterol/HDL Ratio (0.00 - 4.88 %) 2 Hematology CBC w Diff NO MAN DIFF REQ WBC (4.8 - 10.8 /CUMM) 4.4 L RBC (4.70 - 6.10 /CUMM) 3.06 L Hgb (14.0 - 18.0 G/DL) 10.1 L Hct (42 - 52 %) 29.4 L MCV (80.0 - 94.0 FL) 96.1 H MCH (27.0 - 31.0 PG) 33.2 H MCHC (33.0 - 37.0 G/DL) 34.5 RDW (11.5 - 14.5 %) 13.5 Plt Count (130 - 400 /CUMM) 243 MPV (7.4 - 10.4 FL) 6.8 L Gran % (42.2 - 75.2 %) 63.0 Lymphocytes % (20.5 - 51.1 %) 21.9 Monocytes % (1.7 - 9.3 %) 12.7 H Eosinophils % (0 - 5 %) 1.7 Basophils % (0.0 - 2.0 %) 0.7 Absolute Granulocytes (1.4 - 6.5 /CUMM) 2.8 Absolute Lymphocytes (1.2 - 3.4 /CUMM) 1.0 L Absolute Monocytes (0.10 - 0.60 /CUMM) 0.6 Absolute Eosinophils (0.0 - 0.7 /CUMM) 0.1 Absolute Basophils (0.0 - 0.2 /CUMM) 0 01/04 Chemistry Sodium (137 - 145 mmol/L) 121 L Potassium (3.5 - 5.1 mmol/L) 4.3 Chloride (98 - 107 mmol/L) 89 L Carbon Dioxide (22 - 30 mmol/L) 21 L Anion Gap (5 - 16) 11 BUN (9 - 20 mg/dL) 16 Creatinine (0.7 - 1.2 mg/dL) 1.8 H Estimated GFR (>60 ml/min) 36 L Glucose (65 - 99 mg/dL) 153 H Serum Osmolality Cancelled Calcium (8.4 - 10.2 mg/dL) 8.9 Phosphorus (2.5 - 4.5 mg/dL) 3.9 Magnesium (1.6 - 2.3 mg/dL) 2.0 Total Bilirubin (0.2 - 1.3 mg/dL) 0.6 AST (17 - 59 U/L) 27 ALT (21 - 72 U/L) 32 Albumin (3.5 - 5.0 g/dL) 3.4 L Hematology CBC w Diff NO MAN DIFF REQ WBC (4.8 - 10.8 /CUMM) 5.1 RBC (4.70 - 6.10 /CUMM) 3.30 L Hgb (14.0 - 18.0 G/DL) 10.6 L Hct (42 - 52 %) 32.0 L MCV (80.0 - 94.0 FL) 97.1 H MCH (27.0 - 31.0 PG) 32.0 H MCHC (33.0 - 37.0 G/DL) 33.0 RDW (11.5 - 14.5 %) 13.5 Plt Count (130 - 400 /CUMM) 255 MPV (7.4 - 10.4 FL) 6.3 L Gran % (42.2 - 75.2 %) 74.5 Lymphocytes % (20.5 - 51.1 %) 15.0 L Monocytes % (1.7 - 9.3 %) 9.7 H Eosinophils % (0 - 5 %) 0.3 Basophils % (0.0 - 2.0 %) 0.5 Absolute Granulocytes (1.4 - 6.5 /CUMM) 3.8 Absolute Lymphocytes (1.2 - 3.4 /CUMM) 0.8 L Absolute Monocytes (0.10 - 0.60 /CUMM) 0.5 Absolute Eosinophils (0.0 - 0.7 /CUMM) 0 Absolute Basophils (0.0 - 0.2 /CUMM) 0 01/04 01/04 1538 1531 Chemistry Sodium (137 - 145 mmol/L) 125 L Potassium (3.5 - 5.1 mmol/L) 5.5 H Chloride (98 - 107 mmol/L) 89 L Carbon Dioxide (22 - 30 mmol/L) 21 L Anion Gap (5 - 16) 15 BUN (9 - 20 mg/dL) 17 Creatinine (0.7 - 1.2 mg/dL) 2.2 H Estimated GFR (>60 ml/min) 29 L BUN/Creatinine Ratio (7 - 25 %) 7.7 Glucose (65 - 99 mg/dL) 98 Hemoglobin A1c (4.2 - 5.8 %) 5.2 Lactic Acid (0.7 - 2.1 mmol/L) 2.0 Calcium (8.4 - 10.2 mg/dL) 9.9 Magnesium (1.6 - 2.3 mg/dL) 1.1 L Total Bilirubin (0.2 - 1.3 mg/dL) 0.8 AST (17 - 59 U/L) 29 ALT (21 - 72 U/L) 29 Alkaline Phosphatase (< 127 U/L) 96 Creatine Kinase (55 - 170 U/L) 183 H Cancelled Troponin I (<0.11 ng/ml) < 0.01 Total Protein (6.3 - 8.2 g/dL) 7.5 Albumin (3.5 - 5.0 g/dL) 4.1 Globulin (1.9 - 4.2 gm/dL) 3.4 Albumin/Globulin Ratio (1.1 - 2.2 %) 1.2 Vitamin B12 (239 - 931 pg/mL) 926 Folate (2.76 - 20.0 ng/mL) > 20.0 H Hematology CBC w Diff NO MAN DIFF REQ WBC (4.8 - 10.8 /CUMM) 8.0 RBC (4.70 - 6.10 /CUMM) 3.53 L Hgb (14.0 - 18.0 G/DL) 11.7 L Hct (42 - 52 %) 34.2 L MCV (80.0 - 94.0 FL) 96.8 H MCH (27.0 - 31.0 PG) 33.0 H MCHC (33.0 - 37.0 G/DL) 34.1 RDW (11.5 - 14.5 %) 13.4 Plt Count (130 - 400 /CUMM) 292 MPV (7.4 - 10.4 FL) 6.5 L Gran % (42.2 - 75.2 %) 81.3 H Lymphocytes % (20.5 - 51.1 %) 9.5 L Monocytes % (1.7 - 9.3 %) 8.7 Eosinophils % (0 - 5 %) 0.2 Basophils % (0.0 - 2.0 %) 0.3 Absolute Granulocytes (1.4 - 6.5 /CUMM) 6.5 Absolute Lymphocytes (1.2 - 3.4 /CUMM) 0.8 L Absolute Monocytes (0.10 - 0.60 /CUMM) 0.7 H Absolute Eosinophils (0.0 - 0.7 /CUMM) 0 Absolute Basophils (0.0 - 0.2 /CUMM) 0
[2018-01-07] VITALS: BP 144/80
[2018-01-07 00:20] VITALS: BP 144/80
[2018-01-07 04:00] VITALS: BP 140/82
[2018-01-07 04:26] VITALS: BP 140/82
--- NOTE | 2018-01-07 07:28 | History & Physical ---
General Information and HPI Source of Information: patient, old records Exam Limitations: no limitations Allergies/Medications Allergies: Coded Allergies: No Known Allergies (06/30/17) Home Med list Amlodipine Besylate 5 MG TABLET 1 TAB PO DAILY HTN (Reported) Furosemide 20 MG TABLET 1 TAB PO DAILY HTN (Reported) Metoprolol Succ XL (Toprol XL) 25 MG TAB 1 TAB PO DAILY HTN (Reported) Omeprazole 20 MG CAPSULE.DR 1 CAP PO DAILY GERD (Reported) Pravastatin Sodium (Pravachol) 40 MG TABLET 1 TAB PO DAILY CHOLESTEROL ( Reported) Compliance With Home Meds: GOOD Past History Travel History Traveled to [place] past 21 day No Medical History Blood Transfusion Hx: No Neurological: NONE EENT: NONE Cardiovascular: hypertension, hyperlipidemia Respiratory: NONE Gastrointestinal: NONE Hepatic: NONE Renal: NONE Musculoskeletal: C-SPINE DISK FUSION Psychiatric: NONE Endocrine: NONE, HYPONATREMIA Blood Disorders: NONE Cancer(s): NONE SEWER/Reproductive: NONE History of MRSA: No History of VRE: No History of CDIFF: No Isolation History: Standard Pneumonia Vaccine: 10/12/04 Influenza Vaccine: 08/12/17 Surgical History Surgical History: spinal fusion (ant/post cervical fusion) Past Family/Social History Psychosocial History Where do you live? Home Services at Home: None Primary Language: [place] Smoking Status: Former Smoker (1.5 pack/day, quit 20 yrs ago) ETOH Use: daily 4 beers, last drink last night Illicit Drug Use: denies illicit drug use Living Will? 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 daughters (both) per patient Functional Ability ADLs Independent: dressing, eating, toileting, bathing. Ambulation: independent IADLs Independent: shopping, housework, finances, food prep, telephone, transportation , medication admin. 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 Left ventricular ejection fraction is estimated at >65 %. Abnormal relaxation filling pattern of the left ventricle for age (stage 1 diastolic dysfunction). The left atrium is normal in size. Mild thickening/calcification of the mitral valve leaflets. Mild mitral annular calcification. Trace to mild mitral regurgitation. Focal thickening of the aortic valve cusps. No aortic stenosis. Pulmonary artery systolic pressure is normal. Core Measures/Misc (06/28) Cerebrovascular Accident CVA/TIA Diagnosis: Yes Date Last Known Well: 01/04/18 Time Last Known Well: 929 Symptom Start Date: 01/04/18 Symptom Start Time: 930 Reason tPA not ordered Medical Contraindication Swallow Evaluation Pass VTE (View Protocol) VTE Risk Factors Smoker Sepsis (View protocol) Sepsis Present: No
--- NOTE | 2018-01-07 07:31 | Transfer of Care Summary ---
See Addendum Hospital Course Course Hospital Course: This is 82-year-old male with past medical history of hypertension, hyperlipidemia,CKD stage 3, Ch. Hyponatremia, alcohol dependence, is here after sustaining a fall and loss of consciousness. 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 -Hypomagnesemia -JASPREET on CKD stage 3 -Alcohol dependence -pulmonary nodules measuring up to 0.6 cm ICU course: A consolidation was admitted to the ICU for every 1 hr neuro check, neurosurgery evaluated the patient and the sign off as his neurological status stable, we repeated his CAT scan 48-hour after admission that did not showed any progressive change in his right hemorrhage. The patient had right proximal carotid stenosis, cardiology consultation obtained to establish care with them after discharge, we'll increase his atorvastatin 40 daily and as the patient cannot be on any NSAIDs we hold off aspirin for now. Echocardiogram was done please refer to the EMR for results. We consulted nephrology due to his chronic hyponatremia, patient was placed on 1 L fluid restriction started on sodium chloride tablets and will restart his 20 by mouth milligram Lasix. Orthopedic evaluate him and they recommend sling and wrist splint and to follow-up as an outpatient. Patient was transferred to general medicine floor as he did that showed any abnormal rhythm and the awake overnight monitor. Assessment/Plan: see above.
--- NOTE | 2018-01-07 07:40 | PN- Housestaff ---
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 Hypomagnesemia JASPREET on CKD stage 3 Alcohol dependence Pulmonary nodules measuring up to 0.6 cm Subjective: No complaints or acute events overnight. Denies BERG, blurry vision, nausea, vomiting, abdominal pain. Review of Systems Constitutional: Reports: see HPI. Objective Last 24 Hrs of Vital Signs/I&O Vital Signs Date Time Temp Pulse Resp B/P B/P Pulse O2 O2 Flow FiO2 Mean Ox Delivery Rate 01/07 0426 98.1 82 16 140/82 97 Room Air 01/07 0020 98.0 84 16 144/80 97 Room Air 01/06 2000 97.8 81 20 150/62 01/06 1729 Room Air Room Air 01/06 1708 Room Air Room Air 01/06 1600 98.7 71 22 160/79 01/06 1546 70.0 70 22 164/79 98 Room Air 01/06 1400 98.7 70 22 164/79 01/06 1200 98.5 82 28 140/80 01/06 1200 97 Room Air 01/06 1138 77 150/80 01/06 1030 77 150/80 01/06 1000 98.1 84 16 147/71 Intake & Output 01/07 1600 01/07 0800 01/07 0000 Intake Total 200 Output Total Balance 200 Intake, Oral 200 Physical Exam General Appearance: Alert, Cooperative, No Acute Distress, Oriented to person and time HEENT: Atraumatic, PERRLA, EOMI Neck: Supple, Neck collar in place Cardiovascular: Regular Rate, Normal S1, Normal S2, No Murmurs Lungs: Clear to Auscultation, Normal Air Movement Neurological: Normal Speech, Strength at 5/5 X4 Ext, Normal Tone, Sensation Intact, Cranial Nerves 3-12 NL Extremities: No Edema, Normal Pulses, L hand wrist splint intact Current Medications: Current Medications Sig/Keven Start time Last Medication Dose Route Stop Time Status Admin Acetaminophen 1,000 MG Q8 01/06 1400 AC 01/07 IV 0623 Acetaminophen 500 MG Q8P PRN 01/06 0845 AC PO Acetaminophen 500 MG Q6 01/05 1800 DC 01/06 PO 0558 Acetaminophen 1,000 MG Q8 PRN 01/05 1324 DC IV 01/06 1359 Amlodipine Besylate 5 MG DAILY 01/05 1000 AC 01/06 PO 1138 Atorvastatin Calcium 40 MG 1700 01/05 1700 AC 01/06 PO 1628 Folic Acid 1 MG DAILY 01/05 1000 AC 01/06 PO 1030 Furosemide 20 MG DAILY 01/06 1046 AC 01/06 PO 1328 Hydromorphone HCl 2 MG Q8P PRN 01/05 1545 DC 01/06 PO 0119 Lidocaine 1 PAT Q24H 01/04 2145 AC 01/05 EXT 2101 Magnesium Oxide 400 MG BID 01/06 1000 AC 01/06 PO 01/07 1001 2154 Metoprolol Succinate 25 MG DAILY 01/05 1000 AC 01/06 PO 1030 Multivitamins 1 TAB DAILY 01/05 1000 AC 01/06 PO 1030 Omeprazole 20 MG DAILY 01/05 1000 AC 01/07 PO 0623 Oxycodone/ 1 TAB Q12P PRN 01/06 0845 AC Acetaminophen PO Polyethylene Glycol 17 GM DAILY PRN 01/06 0845 AC PO Senna/Docusate Sodium 1 TAB BID PRN 01/06 0845 AC PO Sodium Chloride 1,000 MG TID 01/06 1045 AC 01/06 PO 2154 Thiamine HCl 100 MG DAILY 01/05 1000 AC 01/06 PO 01/07 1001 1030 Last 24 Hrs of Lab/Enrrique Results Last 24 Hrs of Labs/Mics: Laboratory Tests 01/07/18 0725: Sodium Pending, Potassium Pending, Chloride Pending, Carbon Dioxide Pending, Anion Gap Pending, BUN Pending, Creatinine Pending, Glucose Pending, Calcium Pending, Phosphorus Pending, Magnesium Pending, Total Bilirubin Pending, AST Pending, ALT Pending, Albumin Pending, CBC w Diff Pending, WBC Pending, RBC Pending, Hgb Pending, Hct Pending, MCV Pending, MCH Pending, MCHC Pending, RDW Pending, Plt Count Pending, MPV Pending Assessment/Plan Assessment: Mr. Yuen is an 82-year-old male with past medical history of hypertension, hyperlipidemia,CKD stage 3, Ch. Hyponatremia, alcohol dependence, is here after sustaining a fall and loss of consciousness. 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 Hypomagnesemia JASPREET on CKD stage 3 Alcohol dependence Pulmonary nodules measuring up to 0.6 cm Plan: Monitor and replete magnesium PRN STR upon discharge No surgical intervention needed at this time as per Ortho Ortho, Nephro, Neurosurg,Cardio recommendations appreciated Diet: Regular DVT ppx: ALPS Code: FULL Problem List: 1. Carotid stenosis 2. Hypomagnesemia 3. JASPREET (acute kidney injury) 4. Left wrist fracture 5. Fall 6. Subarachnoid bleed 7. Spinous process fracture 8. Syncope Pain Ratin Pain Location: NA Pain Goal: Remain pain free Pain Plan: NA Tomorrow's Labs & Rationales: BEP for Na
[2018-01-07 08:39] LABS: ABSOLUTE BASOPHIL COUNT 0 /CUMM (0.0-0.2); ABSOLUTE EOSINOPHIL COUNT 0.2 /CUMM (0.0-0.7); ABSOLUTE LYMPH COUNT 0.9 /CUMM (1.2-3.4); ABSOLUTE MONOCYTE COUNT 0.6 /CUMM (0.10-0.60); BASOPHIL % 0.6 % (0.0-2.0); EOSINOPHIL % 6.4 % (0-5); GRANULOCYTE % 53.3 % (42.2-75.2); HEMATOCRIT 30.9 % (42-52); MEAN CORPUSCULAR HGB 33.4 PG (27.0-31.0); MEAN CORPUSCULAR HGB CONC 34.5 G/DL (33.0-37.0); MEAN CORPUSCULAR VOLUME 96.8 FL (80.0-94.0); MEAN PLATELET VOLUME 6.6 FL (7.4-10.4); PLATELET COUNT 254 /CUMM (130-400); RBC DISTRIBUTION WIDTH 13.5 % (11.5-14.5); RED BLOOD CELL CT 3.19 /CUMM (4.70-6.10); WHITE BLOOD CELL COUNT 3.8 /CUMM (4.8-10.8)
--- NOTE | 2018-01-07 09:06 | PN- Cardiology ---
Subjective Subjective: Patient claims no symptoms. He is sitting out of bed in chair, having his breakfast. Denies any chest pain or new shortness of breath. Objective Vital Signs and I&Os Vital Signs Date Time Temp Pulse Resp B/P B/P Pulse O2 O2 Flow FiO2 Mean Ox Delivery Rate 01/07 0426 98.1 82 16 140/82 97 Room Air 01/07 0020 98.0 84 16 144/80 97 Room Air 01/06 2000 97.8 81 20 150/62 01/06 1729 Room Air Room Air 01/06 1708 Room Air Room Air 01/06 1600 98.7 71 22 160/79 01/06 1546 70.0 70 22 164/79 98 Room Air 01/06 1400 98.7 70 22 164/79 01/06 1200 98.5 82 28 140/80 01/06 1200 97 Room Air 01/06 1138 77 150/80 01/06 1030 77 150/80 01/06 1000 98.1 84 16 147/71 Intake & Output 01/07 1600 01/07 0800 01/07 0000 01/06 1600 01/06 0800 01/06 0000 Intake Total 200 340 160 240 Output Total 300 550 550 Balance 200 40 -390 -310 Intake, IV 100 Intake, Oral 200 240 160 240 Output, Urine 300 550 550 Patient 141 lb 143 lb Weight Weight Bed scale Measurement Method Physical Exam: Vitals noted. Head normocephalic atraumatic Eyes sclera anicteric conjunctiva showed no pallor extraocular muscles are normal Neck no jugular venous distention no thyroid masses no palpable nodes faint left carotid bruit Chest lungs were clear bilaterally Heart regular rhythm with a 1/6 systolic murmur Abdomen soft no organomegaly bowel sounds normal Extremities no clubbing cyanosis or edema Neurological no gross motor or sensory deficits Current Medications: Current Medications Sig/Keven Start time Last Medication Dose Route Stop Time Status Admin Acetaminophen 1,000 MG Q8 01/06 1400 AC 01/07 IV 0623 Acetaminophen 500 MG Q8P PRN 01/06 0845 AC PO Acetaminophen 1,000 MG Q8 PRN 01/05 1324 DC IV 01/06 1359 Amlodipine Besylate 5 MG DAILY 01/05 1000 AC 01/06 PO 1138 Atorvastatin Calcium 40 MG 1700 01/05 1700 AC 01/06 PO 1628 Folic Acid 1 MG DAILY 01/05 1000 AC 01/06 PO 1030 Furosemide 20 MG DAILY 01/06 1046 AC 01/06 PO 1328 Lidocaine 1 PAT Q24H 01/04 2145 AC 01/05 EXT 2101 Magnesium Oxide 400 MG BID 01/06 1000 AC 01/06 PO 01/07 1001 2154 Metoprolol Succinate 25 MG DAILY 01/05 1000 AC 01/06 PO 1030 Multivitamins 1 TAB DAILY 01/05 1000 AC 01/06 PO 1030 Omeprazole 20 MG DAILY 01/05 1000 AC 01/07 PO 0623 Oxycodone/ 1 TAB Q12P PRN 01/06 0845 AC Acetaminophen PO Polyethylene Glycol 17 GM DAILY PRN 01/06 0845 AC PO Senna/Docusate Sodium 1 TAB BID PRN 01/06 0845 AC PO Sodium Chloride 1,000 MG TID 01/06 1045 AC 01/06 PO 2154 Thiamine HCl 100 MG DAILY 01/05 1000 AC 01/06 PO 01/07 1001 1030 Results Last 48 Hrs of Labs/Mics: Laboratory Tests 01/07/18 0725: Anion Gap 13, Estimated GFR 58 L, Glucose 97, Calcium 9.2, Phosphorus 3.7, Magnesium 1.2 L, Total Bilirubin 0.6, AST 26, ALT 23, Albumin 3.2 L, CBC w Diff NO MAN DIFF REQ, RBC 3.19 L, MCV 96.8 H, MCH 33.4 H, MCHC 34.5, RDW 13.5 , MPV 6.6 L, Gran % 53.3, Lymphocytes % 25.0, Monocytes % 14.7 H, Eosinophils % 6.4 H, Basophils % 0.6, Absolute Granulocytes 2.0, Absolute Lymphocytes 0.9 L, Absolute Monocytes 0.6, Absolute Eosinophils 0.2, Absolute Basophils 0 01/06/18 0400: Anion Gap 8, Estimated GFR 49 L, Glucose 103 H, Calcium 8.9, Phosphorus 3.8, Magnesium 1.4 L, Total Bilirubin 0.6, AST 20, ALT 24, Albumin 3.0 L, CBC w Diff NO MAN DIFF REQ, RBC 3.10 L, MCV 97.3 H, MCH 33.1 H, MCHC 34.0, RDW 13.4 , MPV 6.7 L, Gran % 51.9, Lymphocytes % 26.1, Monocytes % 13.1 H, Eosinophils % 8.0 H, Basophils % 0.9, Absolute Granulocytes 2.1, Absolute Lymphocytes 1.1 L, Absolute Monocytes 0.5, Absolute Eosinophils 0.3, Absolute Basophils 0 01/05/18 0905: Anion Gap 12, Estimated GFR 39 L, Glucose 114 H, Uric Acid 5.1, Calcium 9.0, Phosphorus 4.5, Magnesium 1.8, Total Bilirubin 0.8, AST 25, ALT 30, Albumin 3.5, TSH 1.730, Free T4 1.59 Assessment/Plan Assessment/Plan In summary this 82-year-old gentleman has a following problems 1. Status post fall of unclear etiology with subarachnoid hemorrhage 2. Acute on chronic renal insufficiency 3. Acute on chronic hyponatremia 4. History of coronary artery disease with remote PCI 5. History of hypertension/hyperlipidemia 6. History of alcohol dependence 7. Moderate right internal carotid stenosis His hyponatremia is improving. He does have carotid stenosis 50-75% right internal carotid artery stenosis. He can be followed as an outpatient for this. Left ventricular function is normal and no significant valvular abnormalities noted. Continue telemetry? Not applicable
[2018-01-07 13:50] VITALS: BP 134/78
[2018-01-07] MEDS ORDERED: LIDODERM1 EACH EXT (14:58)
[2018-01-07] MEDS ORDERED: FOLIC ACID1 M1 PO (14:58)
[2018-01-07] MEDS ORDERED: ONE DAILY MULT1 EAC2 PO (14:58)
--- NOTE | 2018-01-07 14:59 | Patient Discharge Instructions ---
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 C7 spinous process displaced fracture Left scaphoid fracture Left shoulder soft tissue injury Acute on chronic Hyponatremia Hypomagnesemia JASPREET on CKD stage 3 Alcohol dependence Pulmonary nodules measuring up to 0.6 cm You had these procedures: NONE Special Instructions: -hold all anticoagulants including asa, NSAIDS -fluid restriction 1000ml daily -left wrist brace for 2 weeks then discontinue -soft cervical collar for comfort Follow up with PCP within 1 week of discharge Follow up with Nephrology within 1 week of discharge Follow up with Neurology upon discharge Acute Coronary Syndrome Inclusion Criteria At DC or during hospital stay patient has or had the following: ACS DIAGNOSIS No Discharge Core Measures Meds if any: Prescribed or Continued at Discharge Meds if any: NOT Prescribed or Continued at Discharge Congestive Heart Failure Inclusion Criteria At DC or during hospital stay patient has or had the following: CHF DIAGNOSIS No Discharge Core Measures Meds if any: Prescribed or Continued at Discharge Meds if any: NOT Prescribed or Continued at Discharge Cerebrovascular accident Inclusion Criteria At DC or during hospital stay patient has or had the following: CVA/TIA Diagnosis Yes Discharge Core Measures Meds if any: Prescribed or Continued at Discharge Meds if any: NOT Prescribed or Continued at Discharge Venous thromboembolism Inclusion Criteria VTE Diagnosis No VTE Type NONE VTE Confirmed by (Test) NONE Discharge Core Measures - Per Current guidelines, there needs to be overlap - treatment for the first 5 days of Warfarin therapy. - If discharged on Warfarin prior to 5 days of - overlap therapy, the patient will need to be - assessed for post discharge needs including - *Post discharge parental anticoagulation - *Warfarin and/or parental anticoagulation education - *Follow up date to check INR post discharge At least 5 days overlap therapy as Inpatient No Meds if any: Prescribed or Continued at Discharge Note: Overlap Therapy is Warfarin and Anticoagulant Meds if any: NOT Prescribed or Continued at Discharge
[2018-01-07] MEDS ORDERED: SODIUM CHLORIDE1 G2 PO (15:05)
[2018-01-07] MEDS ORDERED: ACETAMINOPHEN500 M4 PO (15:07)
[2018-01-07] MEDS ORDERED: MAGNESIUM400 M1 PO (15:09)
--- NOTE | 2018-01-07 15:14 | PN- Nephrology ---
Assessment/Plan Nephrology Assessment: 1. 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 CKD/JASPREET - resolving 3. Hypomagnesemia - possibly on a nutritional basis 4. Head trauma ---> small subarachnoid hemorrhage 5. Spinous process fracture, soft tissue injury to left shoulder and a possible scaphoid fracture of the left wrist. Suggestion: 1. Continue oral sodium chloride tablets and low dose oral furosemide 2. Supplement magnesium 3. Mobilize as appropriate 4. Repeat chemistries tomorrow 5. If serum sodium continues to improve, we'll be able to somewhat liberalize his daily fluid intake Subjective Subjective: Patient still having some discomfort in neck, left shoulder and left wrist but in general appears to be comfortable and in no distress. Creatinine down to 1.2 today and serum sodium up to 129. Potassium 3.9, calcium and phosphorus within normal limits, magnesium low at 1.2. Objective Vital Signs and I&Os Vital Signs Date Time Temp Pulse Resp B/P B/P Pulse O2 O2 Flow FiO2 Mean Ox Delivery Rate 01/07 1350 97.6 74 18 134/78 98 Room Air 01/07 1004 86 150/70 01/07 1003 86 150/70 01/07 0426 98.1 82 16 140/82 97 Room Air 01/07 0400 98.1 82 16 140/82 01/07 0020 98.0 84 16 144/80 97 Room Air 01/07 0000 98.0 84 19 144/80 01/06 2000 97.8 81 20 150/62 01/06 1729 Room Air Room Air 01/06 1708 Room Air Room Air 01/06 1600 98.7 71 22 160/79 01/06 1546 70.0 70 22 164/79 98 Room Air Intake & Output 01/07 1600 01/07 0400 01/06 1600 01/06 0400 01/05 1600 01/05 0400 Intake Total 50 200 279 745 5335 690 Output Total 850 550 630 300 Balance 50 200 -350 -310 398 390 Intake, IV 0 100 828 450 Intake, Oral 50 200 400 240 200 240 Number 0 0 0 Bowel Movements Output, Urine 850 550 630 300 Patient 141 lb 146 lb Weight Weight Bed scale Bed scale Measurement Method Physical Exam: General: Well-developed, elderly white male, awake, alert, in soft collar neck brace and in no acute distress Skin: No rash or jaundice HEENT: Conjunctivae pink, sclerae anicteric, mucous membranes moist Neck: Soft collar neck brace; neck not examined Chest: Clear to P&A Heart: Regular rate and rhythm without S3 or rub Abdomen: Soft and nontender without palpable masses or organomegaly Extremities: Without cyanosis or edema; left wrist splinted Neuro: Awake and alert, cognitively intact, speech within normal limits, no focal findings, no asterixis or myoclonus Current Medications: Current Medications Sig/Keven Start time Last Medication Dose Route Stop Time Status Admin Acetaminophen 1,000 MG Q8 01/06 1400 AC 01/07 IV 1340 Acetaminophen 500 MG Q8P PRN 01/06 0845 AC PO Amlodipine Besylate 5 MG DAILY 01/05 1000 AC 01/07 PO 1004 Atorvastatin Calcium 40 MG 1700 01/05 1700 AC 01/06 PO 1628 Folic Acid 1 MG DAILY 01/05 1000 AC 01/07 PO 1004 Furosemide 20 MG DAILY 01/06 1046 AC 01/07 PO 1004 Lidocaine 1 PAT Q24H 01/04 2145 AC 01/05 EXT 2101 Magnesium Oxide 400 MG BID 01/06 1000 DC 01/07 PO 01/07 1001 1004 Metoprolol Succinate 25 MG DAILY 01/05 1000 AC 01/07 PO 1003 Multivitamins 1 TAB DAILY 01/05 1000 AC 01/07 PO 1004 Omeprazole 20 MG DAILY 01/05 1000 AC 01/07 PO 0623 Oxycodone/ 1 TAB Q12P PRN 01/06 0845 AC Acetaminophen PO Patient Medication 1 ED ONE ONE 01/07 1400 [place] Teaching ED 01/07 1401 Polyethylene Glycol 17 GM DAILY PRN 01/06 0845 AC PO Potassium Chloride 40 MEQ ONCE ONE 01/07 0930 DC 01/07 PO 01/07 0931 1004 Senna/Docusate Sodium 1 TAB BID PRN 01/06 0845 AC PO Sodium Chloride 1,000 MG TID 01/06 1045 AC 01/07 PO 1004 Thiamine HCl 100 MG DAILY 01/05 1000 DC 01/07 PO 01/07 1001 1003 Results Pertinent Lab Results: Laboratory Tests 01/07 01/06 0725 0400 Chemistry Sodium (137 - 145 mmol/L) 129 L 125 L Potassium (3.5 - 5.1 mmol/L) 3.9 4.1 Chloride (98 - 107 mmol/L) 92 L 93 L Carbon Dioxide (22 - 30 mmol/L) 25 24 Anion Gap (5 - 16) 13 8 BUN (9 - 20 mg/dL) 15 16 Creatinine (0.7 - 1.2 mg/dL) 1.2 1.4 H Estimated GFR (>60 ml/min) 58 L 49 L Glucose (65 - 99 mg/dL) 97 103 H Calcium (8.4 - 10.2 mg/dL) 9.2 8.9 Phosphorus (2.5 - 4.5 mg/dL) 3.7 3.8 Magnesium (1.6 - 2.3 mg/dL) 1.2 L 1.4 L Total Bilirubin (0.2 - 1.3 mg/dL) 0.6 0.6 AST (17 - 59 U/L) 26 20 ALT (21 - 72 U/L) 23 24 Albumin (3.5 - 5.0 g/dL) 3.2 L 3.0 L Hematology CBC w Diff NO MAN DIFF REQ NO MAN DIFF REQ WBC (4.8 - 10.8 /CUMM) 3.8 L 4.1 L RBC (4.70 - 6.10 /CUMM) 3.19 L 3.10 L Hgb (14.0 - 18.0 G/DL) 10.7 L 10.3 L Hct (42 - 52 %) 30.9 L 30.2 L MCV (80.0 - 94.0 FL) 96.8 H 97.3 H MCH (27.0 - 31.0 PG) 33.4 H 33.1 H MCHC (33.0 - 37.0 G/DL) 34.5 34.0 RDW (11.5 - 14.5 %) 13.5 13.4 Plt Count (130 - 400 /CUMM) 254 237 MPV (7.4 - 10.4 FL) 6.6 L 6.7 L Gran % (42.2 - 75.2 %) 53.3 51.9 Lymphocytes % (20.5 - 51.1 %) 25.0 26.1 Monocytes % (1.7 - 9.3 %) 14.7 H 13.1 H Eosinophils % (0 - 5 %) 6.4 H 8.0 H Basophils % (0.0 - 2.0 %) 0.6 0.9 Absolute Granulocytes (1.4 - 6.5 /CUMM) 2.0 2.1 Absolute Lymphocytes (1.2 - 3.4 /CUMM) 0.9 L 1.1 L Absolute Monocytes (0.10 - 0.60 /CUMM) 0.6 0.5 Absolute Eosinophils (0.0 - 0.7 /CUMM) 0.2 0.3 Absolute Basophils (0.0 - 0.2 /CUMM) 0 0 01/05 01/05 01/05 01/05 48 8012 0892 3300 Chemistry Sodium (137 - 145 mmol/L) 127 L Potassium (3.5 - 5.1 mmol/L) 4.6 Chloride (98 - 107 mmol/L) 91 L Carbon Dioxide (22 - 30 mmol/L) 24 Anion Gap (5 - 16) 12 BUN (9 - 20 mg/dL) 15 Creatinine (0.7 - 1.2 mg/dL) 1.7 H Estimated GFR (>60 ml/min) 39 L Glucose (65 - 99 mg/dL) 114 H Serum Osmolality (285 - 295 MOSM/KG) 263 L Uric Acid (3.5 - 8.5 mg/dL) 5.1 Calcium (8.4 - 10.2 mg/dL) 9.0 Phosphorus (2.5 - 4.5 mg/dL) 4.5 Magnesium (1.6 - 2.3 mg/dL) 1.8 Total Bilirubin (0.2 - 1.3 mg/dL) 0.8 AST (17 - 59 U/L) 25 ALT (21 - 72 U/L) 30 Troponin I (<0.11 ng/ml) 0.02 Albumin (3.5 - 5.0 g/dL) 3.5 TSH (0.270 - 4.200 uIU/mL) 1.730 Free T4 (0.85 - 1.93 ng/dL) 1.59 Urines Urine Color (YEL,AMB,STR) YEL Urine Clarity (CLEAR) CLEAR Urine pH (5.0 - 8.0) 6.0 Ur Specific [place] (1.001 - 1.035) 1.020 Urine Protein (NEG,<30 MG/DL) TRACE H Urine Ketones (NEG) TRACE H Urine Nitrite (NEG) NEG Urine Bilirubin (NEG) NEG Urine Urobilinogen (0.1 - 1.0 EU/dl) 0.2 Ur Leukocyte Esterase (NEG) NEG Ur Microscopic SEDIMENT EXAMINED Urine RBC (0 - 5 /HPF) RARE Urine WBC (0 - 2 /HPF) 1-3 H Urine Mucus (FEW,NONE) FEW Urine Hemoglobin (NEG) TRACE-INTACT H Urine Osmolality (300 - 1000 MOSM/KG) 331 Ur Random Creatinine (mg/dL) 70.5 Ur Random Sodium (30 - 90 mmol/L) 53 Ur Random Potassium (mmol/L) 32.5 Fraction Sodium Excret (<1% %) 1.0 Urine Glucose (N MG/DL) 100 H 01/05 01/04 0410 2140 Chemistry Sodium (137 - 145 mmol/L) 124 L Potassium (3.5 - 5.1 mmol/L) 4.5 Chloride (98 - 107 mmol/L) 91 L Carbon Dioxide (22 - 30 mmol/L) 23 Anion Gap (5 - 16) 10 BUN (9 - 20 mg/dL) 16 Creatinine (0.7 - 1.2 mg/dL) 1.7 H Estimated GFR (>60 ml/min) 39 L BUN/Creatinine Ratio (7 - 25 %) 9.4 Serum Osmolality (285 - 295 MOSM/KG) 260 L Phosphorus (2.5 - 4.5 mg/dL) 4.7 H Magnesium (1.6 - 2.3 mg/dL) 1.9 Troponin I (<0.11 ng/ml) 0.02 Triglycerides (<150 mg/dL) 32 Cholesterol (< 200 MG/DL) 130 LDL Cholesterol, Calc (65 - 129 mg/dL) 40 L HDL Cholesterol (40 - 60 mg/dL) 84 H Cholesterol/HDL Ratio (0.00 - 4.88 %) 2 Hematology CBC w Diff NO MAN DIFF REQ WBC (4.8 - 10.8 /CUMM) 4.4 L RBC (4.70 - 6.10 /CUMM) 3.06 L Hgb (14.0 - 18.0 G/DL) 10.1 L Hct (42 - 52 %) 29.4 L MCV (80.0 - 94.0 FL) 96.1 H MCH (27.0 - 31.0 PG) 33.2 H MCHC (33.0 - 37.0 G/DL) 34.5 RDW (11.5 - 14.5 %) 13.5 Plt Count (130 - 400 /CUMM) 243 MPV (7.4 - 10.4 FL) 6.8 L Gran % (42.2 - 75.2 %) 63.0 Lymphocytes % (20.5 - 51.1 %) 21.9 Monocytes % (1.7 - 9.3 %) 12.7 H Eosinophils % (0 - 5 %) 1.7 Basophils % (0.0 - 2.0 %) 0.7 Absolute Granulocytes (1.4 - 6.5 /CUMM) 2.8 Absolute Lymphocytes (1.2 - 3.4 /CUMM) 1.0 L Absolute Monocytes (0.10 - 0.60 /CUMM) 0.6 Absolute Eosinophils (0.0 - 0.7 /CUMM) 0.1 Absolute Basophils (0.0 - 0.2 /CUMM) 0 01/04 Chemistry Sodium (137 - 145 mmol/L) 121 L Potassium (3.5 - 5.1 mmol/L) 4.3 Chloride (98 - 107 mmol/L) 89 L Carbon Dioxide (22 - 30 mmol/L) 21 L Anion Gap (5 - 16) 11 BUN (9 - 20 mg/dL) 16 Creatinine (0.7 - 1.2 mg/dL) 1.8 H Estimated GFR (>60 ml/min) 36 L Glucose (65 - 99 mg/dL) 153 H Serum Osmolality Cancelled Calcium (8.4 - 10.2 mg/dL) 8.9 Phosphorus (2.5 - 4.5 mg/dL) 3.9 Magnesium (1.6 - 2.3 mg/dL) 2.0 Total Bilirubin (0.2 - 1.3 mg/dL) 0.6 AST (17 - 59 U/L) 27 ALT (21 - 72 U/L) 32 Albumin (3.5 - 5.0 g/dL) 3.4 L Hematology CBC w Diff NO MAN DIFF REQ WBC (4.8 - 10.8 /CUMM) 5.1 RBC (4.70 - 6.10 /CUMM) 3.30 L Hgb (14.0 - 18.0 G/DL) 10.6 L Hct (42 - 52 %) 32.0 L MCV (80.0 - 94.0 FL) 97.1 H MCH (27.0 - 31.0 PG) 32.0 H MCHC (33.0 - 37.0 G/DL) 33.0 RDW (11.5 - 14.5 %) 13.5 Plt Count (130 - 400 /CUMM) 255 MPV (7.4 - 10.4 FL) 6.3 L Gran % (42.2 - 75.2 %) 74.5 Lymphocytes % (20.5 - 51.1 %) 15.0 L Monocytes % (1.7 - 9.3 %) 9.7 H Eosinophils % (0 - 5 %) 0.3 Basophils % (0.0 - 2.0 %) 0.5 Absolute Granulocytes (1.4 - 6.5 /CUMM) 3.8 Absolute Lymphocytes (1.2 - 3.4 /CUMM) 0.8 L Absolute Monocytes (0.10 - 0.60 /CUMM) 0.5 Absolute Eosinophils (0.0 - 0.7 /CUMM) 0 Absolute Basophils (0.0 - 0.2 /CUMM) 0 01/04 01/04 1538 1531 Chemistry Sodium (137 - 145 mmol/L) 125 L Potassium (3.5 - 5.1 mmol/L) 5.5 H Chloride (98 - 107 mmol/L) 89 L Carbon Dioxide (22 - 30 mmol/L) 21 L Anion Gap (5 - 16) 15 BUN (9 - 20 mg/dL) 17 Creatinine (0.7 - 1.2 mg/dL) 2.2 H Estimated GFR (>60 ml/min) 29 L BUN/Creatinine Ratio (7 - 25 %) 7.7 Glucose (65 - 99 mg/dL) 98 Hemoglobin A1c (4.2 - 5.8 %) 5.2 Lactic Acid (0.7 - 2.1 mmol/L) 2.0 Calcium (8.4 - 10.2 mg/dL) 9.9 Magnesium (1.6 - 2.3 mg/dL) 1.1 L Total Bilirubin (0.2 - 1.3 mg/dL) 0.8 AST (17 - 59 U/L) 29 ALT (21 - 72 U/L) 29 Alkaline Phosphatase (< 127 U/L) 96 Creatine Kinase (55 - 170 U/L) 183 H Cancelled Troponin I (<0.11 ng/ml) < 0.01 Total Protein (6.3 - 8.2 g/dL) 7.5 Albumin (3.5 - 5.0 g/dL) 4.1 Globulin (1.9 - 4.2 gm/dL) 3.4 Albumin/Globulin Ratio (1.1 - 2.2 %) 1.2 Vitamin B12 (239 - 931 pg/mL) 926 Folate (2.76 - 20.0 ng/mL) > 20.0 H Hematology CBC w Diff NO MAN DIFF REQ WBC (4.8 - 10.8 /CUMM) 8.0 RBC (4.70 - 6.10 /CUMM) 3.53 L Hgb (14.0 - 18.0 G/DL) 11.7 L Hct (42 - 52 %) 34.2 L MCV (80.0 - 94.0 FL) 96.8 H MCH (27.0 - 31.0 PG) 33.0 H MCHC (33.0 - 37.0 G/DL) 34.1 RDW (11.5 - 14.5 %) 13.4 Plt Count (130 - 400 /CUMM) 292 MPV (7.4 - 10.4 FL) 6.5 L Gran % (42.2 - 75.2 %) 81.3 H Lymphocytes % (20.5 - 51.1 %) 9.5 L Monocytes % (1.7 - 9.3 %) 8.7 Eosinophils % (0 - 5 %) 0.2 Basophils % (0.0 - 2.0 %) 0.3 Absolute Granulocytes (1.4 - 6.5 /CUMM) 6.5 Absolute Lymphocytes (1.2 - 3.4 /CUMM) 0.8 L Absolute Monocytes (0.10 - 0.60 /CUMM) 0.7 H Absolute Eosinophils (0.0 - 0.7 /CUMM) 0 Absolute Basophils (0.0 - 0.2 /CUMM) 0
--- NOTE | 2018-01-07 15:16 | Discharge Summary ---
See Addendum Visit Information Visit Dates Admission Date: 01/04/18 Discharge Date: 01/07/18 Hospital Course Course Attending Physician: Kathie Martin MD Primary Care Physician: Hui SINGLETON,[facility] Course: This is 82-year-old male with past medical history of hypertension, hyperlipidemia,CKD stage 3, Ch. Hyponatremia, alcohol dependence, is here after sustaining a fall and loss of consciousness. 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 -Hypomagnesemia -JASPREET on CKD stage 3 -Alcohol dependence -pulmonary nodules measuring up to 0.6 cm Hospital course: CT head showed Subarachnoid hemorrhage in the right frontal lobe vertex. Displaced posterior C7 spinous process. He was initially admiited to ICU,1 hr neuro check continued. Neurosurgery evaluated the patient and felt that his neurological status stable, we repeated his CAT scan 48-hour after admission that did not show any progressive change in his right hemorrhage. Soft cervical collar to manage neck pain. The patient had right proximal carotid stenosis, cardiology consultation obtained to establish care with them after discharge. His atorvastatin was incresed to 40 daily .Echocardiogram showed stage 1 diastolic dysfunction with EF>65%. We consulted nephrology due to his chronic hyponatremia, patient was placed on 1 L fluid restriction started on sodium chloride tablets and restarted his 20 by mouth milligram Lasix. Orthopedic evaluated him and they recommend sling and wrist splint and to follow -up as an outpatient. Patient was transferred to general medicine floor as he did that showed any abnormal rhythm and the youth nutritional monitor. He remained stable on the [facility] floor and was discharged to [facility] a day later. 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 Medications at Discharge Discharge Medications: Continue taking these medications: Metoprolol Succ XL (Toprol XL) 25 MG TAB 1 Tablet ORAL DAILY Omeprazole (Omeprazole) 20 MG CAPSULE.DR 1 Capsule ORAL DAILY Pravastatin Sodium (Pravachol) 40 MG TABLET 1 Tablet ORAL DAILY Furosemide (Furosemide) 20 MG TABLET 1 Tablet ORAL DAILY Amlodipine Besylate (Amlodipine Besylate) 5 MG TABLET 1 Tablet ORAL DAILY Start taking the following new medications: Lidocaine (Lidoderm) 5 % ADH..PATCH 1 Patch ON SKIN Q24H Qty = 10 No Refills Folic Acid (Folic Acid) 1 MG TABLET 1 Milligram ORAL DAILY Qty = 30 No Refills Multivitamin (One Daily Multivitamin) 1 EACH TABLET 1 Tablet ORAL DAILY Qty = 30 No Refills Sodium Chloride (Sodium Chloride) 1 GRAM TABLET 1,000 Milligram ORAL THREE TIMES DAILY Qty = 90 No Refills Acetaminophen (Acetaminophen) 500 MG TABLET 500 Milligram ORAL EVERY 8 HOURS NEEDED as needed for PAIN SCALE 1-3 ( MILD) Qty = 20 No Refills Magnesium Oxide (Magnesium) 400 MG CAPSULE 1 Capsule ORAL TWICE DAILY Qty = 6 No Refills Copies To: [employer] NIELSEN,Keisha Pompa; Jag NIELSEN,Tory Solo
--- NOTE | 2018-01-07 18:12 | PN- Orthopedic ---
Subjective Subjective: Patient is an 82-year-old male who had a significant fold on a flight of stairs I was called in consultation to see this patient for left shoulder pain and left wrist discomfort. I saw the patient in the ICU on 01/06/2018 and examined his shoulder and his left upper extremity. Objective Vital Signs and I&Os Vital Signs Date Time Temp Pulse Resp B/P B/P Pulse O2 O2 Flow FiO2 Mean Ox Delivery Rate 01/07 1350 97.6 74 18 134/78 98 Room Air 01/07 1004 86 150/70 01/07 1003 86 150/70 01/07 0426 98.1 82 16 140/82 97 Room Air 01/07 0400 98.1 82 16 140/82 01/07 0020 98.0 84 16 144/80 97 Room Air 01/07 0000 98.0 84 19 144/80 01/06 2000 97.8 81 20 150/62 Intake & Output 01/07 1600 01/07 0800 01/07 0000 01/06 1600 01/06 0800 01/06 0000 Intake Total 50 200 340 160 240 Output Total 300 550 550 Balance 50 200 40 -390 -310 Intake, IV 0 100 Intake, Oral 50 200 240 160 240 Number 0 Bowel Movements Output, Urine 300 550 550 Patient 141 lb 143 lb Weight Weight Bed scale Measurement Method Physical Exam: Examination today he had good elevation of the left shoulder he can raise it to 140 150 of elevation which was much better than when he first came into the hospital. He had actual negative drop arm testing is able to hold against some resistance with testing supraspinatus. He had excellent external rotation strength but a negative leg sign. Negative belly press test. He has some mild discomfort in the upper shoulder over the rotator cuff and probably has a partial tear of the rotator cuff. Neurologically he was grossly intact in the left upper extremity. Assessment/Plan Assessment/Plan This patient is all the signs of a partial tearing of the left rotator cuff. Which is improving very nicely with range of motion and mild strengthening activities. This patient would respond very nicely to physical therapy. Pain has reduced tremendously. Plan will be to have him follow up with orthopedics when he is discharged couple weeks from now. Core Measures Venous Thromboembolism VTE Risk Factors Smoker No Mechanical VTE Prophylaxis d/t N/A MechProphylax Ordered No VTE Pharm Prophylaxis d/t Hemorrhagic CVA Attending MD Review Statement Attending Statement Attending MD Statement: examined this patient
[2018-01-07 21:59] VITALS: BP 130/68
[2018-01-08] VITALS: BP 130/68
[2018-01-08 02:00] VITALS: BP 130/68
[2018-01-08 04:00] VITALS: BP 130/68
[2018-01-08 06:00] VITALS: BP 144/70
--- NOTE | 2018-01-08 07:08 | PN- Housestaff ---
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 Hypomagnesemia JASPREET on CKD stage 3 Alcohol dependence Pulmonary nodules measuring up to 0.6 cm Subjective: No complaints or acute events overnight Review of Systems Constitutional: Reports: see HPI. Objective Last 24 Hrs of Vital Signs/I&O Vital Signs Date Time Temp Pulse Resp B/P B/P Pulse O2 O2 Flow FiO2 Mean Ox Delivery Rate 01/08 0600 98.0 70 16 144/70 98 Room Air 01/08 0400 98.1 70 20 130/68 01/08 0200 98.1 70 18 130/68 01/08 0000 98.1 70 18 130/68 01/07 2159 98.1 70 18 130/68 97 Room Air 01/07 1350 97.6 74 18 134/78 98 Room Air 01/07 1004 86 150/70 01/07 1003 86 150/70 Intake & Output 01/08 0800 01/08 0000 01/07 1600 Intake Total 500 Output Total 250 Balance 250 Intake, IV 100 Intake, Oral 400 Output, Urine 250 Physical Exam General Appearance: Alert, Oriented X3, Cooperative, No Acute Distress Cardiovascular: Regular Rate, Normal S1, Normal S2, No Murmurs Lungs: Clear to Auscultation, Normal Air Movement Neurological: Normal Speech, Strength at 5/5 X4 Ext, Normal Tone, Sensation Intact, Cranial Nerves 3-12 NL Current Medications: Current Medications Sig/Keven Start time Last Medication Dose Route Stop Time Status Admin Acetaminophen 1,000 MG Q8 01/06 1400 AC 01/08 IV 0536 Acetaminophen 500 MG Q8P PRN 01/06 0845 AC PO Amlodipine Besylate 5 MG DAILY 01/05 1000 AC 01/07 PO 1004 Atorvastatin Calcium 40 MG 1700 01/05 1700 AC 01/07 PO 1735 Folic Acid 1 MG DAILY 01/05 1000 AC 01/07 PO 1004 Furosemide 20 MG DAILY 01/06 1046 AC 01/07 PO 1004 Lidocaine 1 PAT Q24H 01/04 2145 AC 01/07 EXT 2140 Magnesium Oxide 400 MG BID 01/06 1000 DC 01/07 PO 01/07 1001 1004 Metoprolol Succinate 25 MG DAILY 01/05 1000 AC 01/07 PO 1003 Multivitamins 1 TAB DAILY 01/05 1000 AC 01/07 PO 1004 Omeprazole 20 MG DAILY 01/05 1000 AC 01/07 PO 0623 Oxycodone/ 1 TAB Q12P PRN 01/06 0845 AC Acetaminophen PO Patient Medication 1 ED ONE ONE 01/07 1400 DC Teaching ED 01/07 1401 Polyethylene Glycol 17 GM DAILY PRN 01/06 0845 AC PO Potassium Chloride 40 MEQ ONCE ONE 01/07 0930 DC 01/07 PO 01/07 0931 1004 Senna/Docusate Sodium 1 TAB BID PRN 01/06 0845 AC PO Sodium Chloride 1,000 MG TID 01/06 1045 AC 01/07 PO 2137 Thiamine HCl 100 MG DAILY 01/05 1000 DC 01/07 PO 01/07 1001 1003 Last 24 Hrs of Lab/Enrrique Results Last 24 Hrs of Labs/Mics: Laboratory Tests 01/08/18 0713: Sodium Pending, Potassium Pending, Chloride Pending, Carbon Dioxide Pending, Anion Gap Pending, BUN Pending, Creatinine Pending, BUN/Creatinine Ratio Pending Assessment/Plan Assessment: Mr. Yuen is an 82-year-old male with past medical history of hypertension, hyperlipidemia,CKD stage 3, Ch. Hyponatremia, alcohol dependence, is here after sustaining a fall and loss of consciousness. 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 Hypomagnesemia JASPREET on CKD stage 3 Alcohol dependence Pulmonary nodules measuring up to 0.6 cm Plan: Monitor and replete magnesium PRN Patient stable and ambulating. Discharge today to [facility] No surgical intervention needed at this time as per Ortho Ortho, Nephro, Neurosurg,Cardio recommendations appreciated Diet: Regular DVT ppx: ALPS Code: FULL Problem List: 1. Syncope 2. Spinous process fracture 3. Subarachnoid bleed 4. Fall 5. Left wrist fracture 6. Hypomagnesemia 7. Carotid stenosis Pain Ratin Pain Location: NA Pain Goal: Remain pain free Pain Plan: NA Tomorrow's Labs & Rationales: none Kathie Martin MD 01/08/18 1036: Attending MD Review Statement Attending Statement Attending MD Statement: examined this patient, discuss w/resident/PA/SYSTEM SUPPORT SPECIALIST, agreed w/resident/PA/SYSTEM SUPPORT SPECIALIST, reviewed EMR data (avail) Attending Assessment/Plan: 82M PMH HTN, HLD, alcohol use admitted initially to ICU after tripping and falling down 12 stairs and sustaining a head injury with small subarachnoid hemorrhage, C7 slightly displaced spinal fracture, left scaphoid fracture. Was found to have stenosis of the right ICA and acute on chronic hyponatremia, with JASPREET and hypomagnesemia. Patient's electrolytes have improved, his sodium today is 131. He is in a soft cervical collar and reports no pain or neurological dysfunction. Neuro exam was normal. He is able to ambulate and move all limbs without difficulty. 1. Fall, initial 2. Subarachnoid hemorrhage 3. C7 displaced spinous process fracture 4. Left scaphoid fracture 5. Acute on chronic hyponatremia 6. JASPREET (resolved) 7. Hypomagnesemia (resolved) Plan - Stable for discharge to [facility] - Continue current pain medications - Physical therapy - Continue home medications excluding anti-coagulation - Outpatient neurosurgery and orthopedic follow up
[2018-01-08 10:50] VITALS: BP 142/92
--- NOTE | 2018-01-08 11:44 | PN- Cardiology ---
Subjective Subjective: Doing well. Has been working with physical therapy. Continues to deny any dizziness, chest pain, or palpitations. Objective Vital Signs and I&Os Vital Signs Date Time Temp Pulse Resp B/P B/P Pulse O2 O2 Flow FiO2 Mean Ox Delivery Rate 01/08 1050 98.0 82 16 142/92 01/08 0905 82 142/92 01/08 0905 82 142/92 01/08 0600 98.0 70 16 144/70 01/08 0600 98.0 70 16 144/70 98 Room Air 01/08 0400 98.1 70 20 130/68 01/08 0200 98.1 70 18 130/68 01/08 0000 98.1 70 18 130/68 01/07 2159 98.1 70 18 130/68 97 Room Air 01/07 1350 97.6 74 18 134/78 98 Room Air Intake & Output 01/08 1600 01/08 0800 01/08 0000 01/07 1600 01/07 0800 01/07 0000 Intake Total 140 500 50 200 Output Total 250 Balance 140 250 50 200 Intake, IV 100 0 Intake, Oral 140 400 50 200 Number 0 Bowel Movements Output, Urine 250 Physical Exam: General: no apparent distress. Alert. Neck immobilized. Eyes: No obvious scleral icterus. HEENT: No jugular venous distention or abnormal jugular venous pulsations. Cardiovascular: Normal intensity S1/S2. PMI not grossly displaced. Respiratory: Lungs clear to auscultation bilaterally. Abdomen: Soft, nontender with no guarding or rebound tenderness. Musculoskeletal: No clubbing or cyanosis noted Skin: No obvious rashes or ulcerations. Neurologic: No gross focal deficits noted. Current Medications: Current Medications Sig/Keven Start time Last Medication Dose Route Stop Time Status Admin Acetaminophen 1,000 MG Q8 01/06 1400 DCD 01/08 IV 0536 Acetaminophen 500 MG Q8P PRN 01/06 0845 DCD PO Amlodipine Besylate 5 MG DAILY 01/05 1000 DCD 01/08 PO 0905 Atorvastatin Calcium 40 MG 1700 01/05 1700 DCD 01/07 PO 1735 Folic Acid 1 MG DAILY 01/05 1000 DCD 01/08 PO 0905 Furosemide 20 MG DAILY 01/06 1046 DCD 01/08 PO 0905 Lidocaine 1 PAT Q24H 01/04 2145 DCD 01/07 EXT 2140 Metoprolol Succinate 25 MG DAILY 01/05 1000 DCD 01/08 PO 0905 Multivitamins 1 TAB DAILY 01/05 1000 DCD 01/08 PO 0904 Omeprazole 20 MG DAILY 01/05 1000 DCD 01/08 PO 0904 Oxycodone/ 1 TAB Q12P PRN 01/06 0845 DCD Acetaminophen PO Patient Medication 1 ED ONE ONE 01/07 1400 DC Teaching ED 01/07 1401 Polyethylene Glycol 17 GM DAILY PRN 01/06 0845 DCD PO Senna/Docusate Sodium 1 TAB BID PRN 01/06 0845 DCD PO Sodium Chloride 1,000 MG TID 01/06 1045 DCD 01/08 PO 0904 Results Last 48 Hrs of Labs/Mics: Laboratory Tests 01/08/18 0713: Anion Gap 11, Estimated GFR 53 L, BUN/Creatinine Ratio 15.4 01/07/18 0725: Anion Gap 13, Estimated GFR 58 L, Glucose 97, Calcium 9.2, Phosphorus 3.7, Magnesium 1.2 L, Total Bilirubin 0.6, AST 26, ALT 23, Albumin 3.2 L, CBC w Diff NO MAN DIFF REQ, RBC 3.19 L, MCV 96.8 H, MCH 33.4 H, MCHC 34.5, RDW 13.5 , MPV 6.6 L, Gran % 53.3, Lymphocytes % 25.0, Monocytes % 14.7 H, Eosinophils % 6.4 H, Basophils % 0.6, Absolute Granulocytes 2.0, Absolute Lymphocytes 0.9 L, Absolute Monocytes 0.6, Absolute Eosinophils 0.2, Absolute Basophils 0 Recent Imaging Studies: Not on telemetry Assessment/Plan Assessment/Plan 1. Status post fall of unclear etiology with subarachnoid hemorrhage 2. Acute on chronic renal insufficiency 3. Acute on chronic hyponatremia 4. History of coronary artery disease with remote PCI 5. History of hypertension/hyperlipidemia 6. History of alcohol dependence 7. Moderate right internal carotid stenosis Doing well and continues to deny any dizziness, chest pain, palpitations, or dyspnea. Incidental internal carotid stenosis was noted which will be followed as an outpatient; this moderate unilateral stenosis would not be expected to cause syncope. His cardiac status remains stable and he should follow-up in our office after discharge. Ilan Springer MD [facility] Continue telemetry? Not applicable
== END 2018-01-08 11:13 | DRG 83 ==
LOC: ERH 14:38 → 2NA 20:10 → CRI 20:10 → ERHI 20:10 → ENRESERV 20:25 → CRI 21:03 → 2NA 01-06 20:24
PROVIDERS: Internal Medicine Hematology & Oncology; Physician Assistant; Student in an Organized Health Care Education/Training Program
DX: S06.6X9A Traumatic subarachnoid hemorrhage with loss of consciousness of unspecified duration, initial encounter (principal); S12.600A Unspecified displaced fracture of seventh cervical vertebra, initial encounter for closed fracture; N17.9 Acute kidney failure, unspecified; E22.2 Syndrome of inappropriate secretion of antidiuretic hormone; E87.1 Hypo-osmolality and hyponatremia; N18.3 Chronic kidney disease, stage 3 (moderate); E83.42 Hypomagnesemia; E78.5 Hyperlipidemia, unspecified; R55 Syncope and collapse; W10.9XXA Fall (on) (from) unspecified stairs and steps, initial encounter; Y92.015 Private garage of single-family (private) house as the place of occurrence of the external cause; M47.892 Other spondylosis, cervical region; F10.10 Alcohol abuse, uncomplicated; I12.9 Hypertensive chronic kidney disease with stage 1 through stage 4 chronic kidney disease, or unspecified chronic kidney disease; M25.512 Pain in left shoulder; I65.21 Occlusion and stenosis of right carotid artery; Z87.891 Personal history of nicotine dependence; K21.9 Gastro-esophageal reflux disease without esophagitis; Z98.1 Arthrodesis status; I25.10 Atherosclerotic heart disease of native coronary artery without angina pectoris; R91.8 Other nonspecific abnormal finding of lung field; S62.002A Unspecified fracture of navicular [scaphoid] bone of left wrist, initial encounter for closed fracture
CPT/HCPCS: 2NASP; 84133; 84300; CCU; 36415; 36592; 73030-LT; 73060-LT; 73110-LT; 74176; 81001; 82436; 82570; 93005; 93010; 93306; 96365; 96366; 96374; 96375; 96376; 97110-GO; 97112-GO; 97116-GO; 97161-GP; 97166-GO; 97530-GO; 99291; J0131; J3490